=== PATIENT | female | born 1995 | race Caucasian/White ===

== ENCOUNTER → 2017-06-24 | Outpatient (CLI) | payer OTHER ==
--- NOTE | 2017-07-01 21:05 | EM ---
EVENT MONITOR Patient was monitored for 24 hours. The baseline rhythm is a sinus mechanism with normal conduction, the average rate 94 beats per minute, minimum 57, maximum 202 beats per minute. Ventricular ectopic activity was not present. Episode of sinus tachycardia was noted with a maximum rate of 202. This could represent supraventricular tachycardia. Symptoms of heart racing correlated with the episode of supraventricular tachycardia. MMODL / IJN: [id number] /
== END | disposition home or self-care (01) ==
LOC: RADECHMAIN 12:16
PROVIDERS: ATTEND Pediatrics
DX: R00.0 Tachycardia, unspecified (principal)
CPT/HCPCS: 93225; 93226

== ENCOUNTER 2017-08-05 10:05 | Emergency (ER) | payer OTHER ==
[2017-08-05 10:24] VITALS: RESP 16; TEMP 98.1
--- NOTE | 2017-08-05 10:43 | ED ---
General Adult HPI - General Chief complaint: Vaginal Bleeding Stated complaint: POSS MISCARRAGE Time Seen by Provider: 08/05/17 10:20 Source: patient, RN notes reviewed Mode of arrival: ambulatory Limitations: no limitations - History of Present Illness Initial comments: This is a 22-year-old female who states she is 9 weeks it is her first . Patient states that a little lower abdominal cramping last evening and this morning she woke up with vaginal bleeding. Patient is concerned she is having a miscarriage. Patient denies any cramping or abdominal pain today. Patient denies any dysuria hematuria urinary frequency. Patient denies any nausea vomiting or diarrhea. Patient denies any fever chills. Patient denies any other symptoms at this time. Patient does not know her blood type. - Related Data Home Medications Medication Instructions Recorded Confirmed Msr-Ojvm-Uqvbr Acid 1 cap PO DAILY 08/05/17 08/05/17 [-U Capsule (formulary)] Allergies Allergy/AdvReac Type Severity Reaction Status Date / Time No Known Allergies Allergy Verified 08/05/17 12:24 Review of Systems ROS Statement: Those systems with pertinent positive or pertinent negative responses have been documented in the HPI. ROS Other: All systems not noted in ROS Statement are negative. Past Medical History Additional Past Medical History / Comment(s): TACHYCARDIA History of Any Multi-Drug Resistant Organisms: None Reported Past Surgical History: No Surgical Hx Reported Past Psychological History: No Psychological Hx Reported Smoking Status: Never smoker Past Alcohol Use History: None Reported Past Drug Use History: None Reported General Exam - General Exam Comments Initial Comments: GENERAL: Patient is well-developed and well-nourished. Patient is nontoxic and well- hydrated and is in no acute distress. ENT: Neck is soft and supple. No significant lymphadenopathy is noted. Oropharynx is clear. Moist mucous membranes. Neck has full range of motion without eliciting any pain. EYES: The sclera were anicteric and conjunctiva were pink and moist. Extraocular movements were intact and pupils were equal round and reactive to light. Eyelids were unremarkable. PULMONARY: Unlabored respirations. Good breath sounds bilaterally. No audible rales rhonchi or wheezing was noted. CARDIOVASCULAR: There is a regular rate and rhythm without any murmurs gallops or rubs. ABDOMEN: Soft and nontender with normal bowel sounds. No palpable organomegaly was noted. There is no palpable pulsatile mass. GENITALIA I did a speculum exam the cervical os was closed and there was some very slow vaginal bleeding. SKIN: Skin is clear with no lesions or rashes and otherwise unremarkable. NEUROLOGIC: Patient is alert and oriented x3. Cranial nerves II through XII are grossly intact. Motor and sensory are also intact. Normal speech, volume and content. Symmetrical smile. MUSCULOSKELETAL: Normal extremities with adequate strength and full range of motion. LYMPHATICS: No significant lymphadenopathy is noted PSYCHIATRIC: Normal psychiatric evaluation. Limitations: no limitations Course Vital Signs 08/05/17 10:21 Temperature 98.1 F Pulse Rate 100 Respiratory 16 Rate Blood Pressure 129/63 O2 Sat by Pulse 99 Oximetry Medical Decision Making - Medical Decision Making Ultrasound showed an irregular-shaped fluid collection in the endometrium with no definitive yolk sac or pole. Patient's beta hCG was over 8000. Patient will follow department on Thursday. - Lab Data Lab Results 08/05/17 08/05/17 08/05/17 Range/Units 10:40 10:40 10:40 HCG, Quant 8091.1 mIU/mL Urine HCG, Qual Detected (Not Detectd) Blood Type O Positive Blood Type Recheck No Disposition Clinical Impression: Threatened Disposition: HOME SELF-CARE Condition: Good Instructions: Threatened Miscarriage (ED) Additional Instructions: Patient should return if there are any new or worsening symptoms. Patient returns as any abdominal pain. Patient should follow-up with Brit. Is patient prescribed a controlled substance at d/c from ED?: No Referrals: Lito Monsalve MD [Primary Care Provider] - 1-2 days Time of Disposition: 12:28
--- NOTE | 2017-08-05 12:04 | US ---
EXAMINATION TYPE: Transabdominal DATE OF EXAM: 05/19/17 COMPARISON: NONE CLINICAL HISTORY: pain. Bleeding. Patient had an ultrasound done at her doctor's office which showed a possible gestational sac about 3 weeks ago. Patient states she should be around 9 weeks. EXAM PERFORMED: Transvaginal (TV) and Transabdominal (TA) EXAM MEASUREMENTS: GESTATIONAL AGE / DATING Physician Established: (9 weeks/1 days) EDC: 03/09/2017 Dates by LMP: LMP unknown Dates by First Scan: No scan done at this facility Dates by Current Scan for: No IUP seen at this time MATERNAL ANATOMY Uterus: 6.8 x 5.1 x 6.1 cm Right Ovary: 3.3 x 1.9 x 2.3 cm Left Ovary: 2.0 x 0.8 x 2.1 cm Post CDS / Adnexa: wnl Presence of free fluid: No Presence of corpus luteal cyst: No Presence of subchorionic bleed: Yes, multiple hypoechoic areas visualized adjacent to the possible ge stational sac, largest measuring 1.6 x 0.9 x 0.9 cm GESTATION / SURVEY MSD: 1.5 cm (6 weeks/1 days) IUP: No pole or yolk sac visualized on this exam Date of LMP: Unsure Beta HcG (if available): Not available at this time. Irregular shaped anechoic area visualized within the endometrium measuring 1.9 x 1.7 x 1.1 cm. No yol k sac or pole visualized on this exam. IMPRESSION: 1. Irregular shaped fluid collection in the endometrium with no definite yolk sac or pole. Diff erential diagnosis includes spontaneous , normal too early to detect, or ectopic pr egnancy. Correlate with serial beta hCG and pelvic ultrasound as clinically warranted.
[2017-08-05 12:43] VITALS: BP 126/70; PULSE 98
== END 2017-08-05 12:43 | disposition home or self-care (01) ==
LOC: EC 10:05
DX: O20.0 Threatened abortion (principal); Z3A.09 9 weeks gestation of pregnancy
CPT/HCPCS: 36415; 76801; 76817; 81025; 84702; 86900; 86901; 99284

== ENCOUNTER → 2017-08-07 | Outpatient (CLI) | payer OTHER | END | disposition home or self-care (01) | LOC: LABWHC1 08:12 | PROVIDERS: ATTEND Pediatrics | DX: O20.0 Threatened abortion (principal); Z3A.00 Weeks of gestation of pregnancy not specified | CPT/HCPCS: 36415; 84702 ==

== ENCOUNTER → 2017-08-12 | Outpatient (CLI) | payer OTHER ==
--- NOTE | 2017-08-13 10:19 | US ---
EXAMINATION TYPE: Transabdominal DATE OF EXAM: 05/19/17 COMPARISON: US CLINICAL HISTORY: Abn us; vaginal bleeding; EXAM PERFORMED: Transvaginal (TV to better see gestational sac and ovaries) and Transabdominal US. EXAM MEASUREMENTS: GESTATIONAL AGE / DATING Physician Established: Not yet established Dates by LMP: (10 weeks/1 day) EDC: 03/09/2018 Dates by First Scan: irregular gestational sac seen (6 weeks 1 day) Dates by Current Scan for: irregular gestational sac and contents seen today (6 weeks/1 day) MATERNAL ANATOMY Uterus: 10.0 x 6.2 x 4.6cm Right Ovary: 3.7x 1.8 x 2.2cm Left Ovary: 3.1 x 1.9 x 1.3cm Post CDS / Adnexa: wnl Presence of free fluid: no Presence of corpus luteal cyst: oval solid mass noted in right ovary =1.8 x 1.2 x 0.9cm Mixed solid and cystic spaces are present within the endometrium. GESTATION / SURVEY IUP: no pole or yolk sac seen; irregular appearance to gestational sac Beta HcG (if available): IMPRESSION: Abnormal appearance to the endometrium, abnormal thickening, internal echoes, consider retained produ cts of conception, failed , molar . No viable intrauterine is evident. So lid right ovarian mass could represent hemorrhagic cyst, follow-up.
== END | disposition home or self-care (01) ==
LOC: RADUSMAIN 17:45
PROVIDERS: ATTEND Obstetrics & Gynecology
DX: O02.0 Blighted ovum and nonhydatidiform mole (principal); O26.891 Other specified pregnancy related conditions, first trimester; N83.8 Other noninflammatory disorders of ovary, fallopian tube and broad ligament; Z3A.14 14 weeks gestation of pregnancy
CPT/HCPCS: 76801

== ENCOUNTER → 2017-08-13 | Outpatient (CLI) | payer OTHER ==
[2017-08-13 10:02] LABS: Basophils % (A) 0 %; Eosinophils # (A) 0.1 k/uL (0-0.7); Eosinophils % (A) 1 %; HCT 42.3 % (34.0-46.0); HGB 14.1 gm/dL (11.4-16.0); Lymphocytes # (A) 1.8 k/uL (1.0-4.8); Lymphocytes % (A) 27 %; MCH 30.1 pg (25.0-35.0); MCHC 33.3 g/dL (31.0-37.0); MCV 90.5 fL (80.0-100.0); Mean Platelet Volume 7.9; Monocytes # (A) 0.3 k/uL (0-1.0); Monocytes % (A) 5 %; Neutrophils # (A) 4.2 k/uL (1.3-7.7); Neutrophils % (A) 64 %; Platelet Count 168 k/uL (150-450); RBC 4.67 m/uL (3.80-5.40); RDW 12.9 % (11.5-15.5); WBC 6.5 k/uL (4.0-11.0)
== END | disposition home or self-care (01) ==
LOC: LABPAT 09:30
PROVIDERS: ATTEND Obstetrics & Gynecology
DX: Z01.812 Encounter for preprocedural laboratory examination (principal)
CPT/HCPCS: 36415; 85025

== ENCOUNTER → 2017-08-15 | Outpatient (CLI) | payer OTHER ==
[2017-08-15 11:15] LABS: Basophils % (A) 0 %; Eosinophils % (A) 0 %; HCT 42.5 % (34.0-46.0); HGB 14.4 gm/dL (11.4-16.0); Lymphocytes # (A) 1.4 k/uL (1.0-4.8); Lymphocytes % (A) 18 %; MCH 30.3 pg (25.0-35.0); MCHC 33.8 g/dL (31.0-37.0); MCV 89.7 fL (80.0-100.0); Mean Platelet Volume 7.3; Monocytes # (A) 0.3 k/uL (0-1.0); Monocytes % (A) 4 %; Neutrophils % (A) 76 %; Platelet Count 186 k/uL (150-450); RBC 4.74 m/uL (3.80-5.40); RDW 12.9 % (11.5-15.5); WBC 7.9 k/uL (4.0-11.0)
== END | disposition home or self-care (01) ==
LOC: LABPAT 10:37
PROVIDERS: ATTEND Obstetrics & Gynecology
DX: Z01.812 Encounter for preprocedural laboratory examination (principal)
CPT/HCPCS: 36415; 85025; 86850; 86900; 86901

== ENCOUNTER 2017-08-17 05:59 | Day surgery (SDC) | payer OTHER ==
[2017-08-13 11:29] VITALS: BMI 25.7
--- NOTE | 2017-08-14 16:40 | P.HPOB ---
History of Present Illness H&P Date: 08/14/17 Chief Complaint: Incomplete This patient is a pleasant 22-year-old 1 para 0 female who initially presented to me for a new OB appointment with complaints of vaginal bleeding. Patient had been in the emergency department and was found to have a small sac consistent with 6 weeks with multiple subchorionic areas of bleeding. Patient's beta-hCG was 8091. Patient also reported that she had an ultrasound [facility] a month previous that showed an empty sac. Repeat ultrasound done 2 days ago showed persistent irregular sac without interval change and also decreasing beta hCG to approximately 5900. Patient continues to bleed at this time is requesting suction D&C for treatment. Review of Systems Genitourinary: Reports as per HPI, Reports abnormal vaginal bleeding, Reports Past Medical History Past Medical History: No Reported History Additional Past Medical History / Comment(s): "fast heart beat" - no rx, History of Any Multi-Drug Resistant Organisms: None Reported Past Surgical History: No Surgical Hx Reported Past Anesthesia/Blood Transfusion Reactions: No Reported Reaction Additional Past Anesthesia/Blood Transfusion Reaction / Comment(s): never had anesthesia Past Psychological History: No Psychological Hx Reported Smoking Status: Never smoker Past Alcohol Use History: None Reported Past Drug Use History: None Reported - Past Family History Mother Family Medical History: No Reported History Medications and Allergies Home Medications Medication Instructions Recorded Confirmed Type No Known Home Medications 08/13/17 08/13/17 History Allergies Allergy/AdvReac Type Severity Reaction Status Date / Time No Known Allergies Allergy Verified 08/13/17 11:24 Exam - OBG Physical Exam Abdomen: bowel sounds normal, no diffuse tenderness, no bruit present, no guarding noted, no hepatomegaly, no splenomegaly, no mass Vulva: both: normal Vagina: normal moisture, no discharge Cervix: no lesion, no discharge Uterus: enlarged Results Ultrasound shows a 6 weeks irregular sac with multiple areas of subchorionic hemorrhage. Assessment and Plan (1) Incomplete Narrative/Plan: This is a pleasant 22-year-old 1 para 0 female estimated gestational age 6 weeks with a nonviable consistent with an incomplete . Plan at this time is to proceed with suction D&C for treatment. Patient I have discussed the surgery and risks and risks of infection, bleeding, possible uterine perforation. All the patient's questions are answered and a written consent is obtained. Status: Acute Code(s): O03.4 - INCOMPLETE SPONTANEOUS WITHOUT COMPLICATION SNOMED Code(s): 554977625
[~2017-08-17 05:59] MED LIST: DEXAMETHASONE SOD PHOSPHATE 10 MG/ML 1 ML VIAL IV ONE; LACTATED RINGERS 1,000 ML IV SCH; MIDAZOLAM 2 MG/2 ML VIAL IV PRN; ONDANSETRON 4 MG/2 ML VIAL IVP ONE; Pre Op ABX Message 1 EACH MISC MISCELLANE ONE; SCOPOLAMINE 1.5MG/72HR PATCH TRANSDERM ONE; fentaNYL (PF) 50 MCG/ML 2 ML AMP IV PRN
[2017-08-17 06:19] VITALS: RESP 16
[2017-08-17] MEDS ORDERED: LIDOCAINE 1% 20 ML VIAL (10MG/ML) FOR IV START INTRADERMA ONE (06:30)
[2017-08-17] MEDS ORDERED: SUCCINYLCHOLINE CHLORIDE 100 MG/5 ML SYR IV ONE (06:56)
[2017-08-17] MEDS ORDERED: MIDAZOLAM 2 MG/2 ML VIAL ONE (06:56)
[2017-08-17] MEDS ORDERED: LIDOCAINE 1% INJ 10MG/ML (20 ML MDV) ONE (06:56)
[2017-08-17] MEDS ORDERED: PROPOFOL 10 MG/ML 20 ML VIAL IV ONE (06:56)
[2017-08-17] MEDS ORDERED: KETOROLAC 30 MG/ML 1 ML VIAL ONE (06:56)
[2017-08-17] MEDS ORDERED: fentaNYL (PF) 50 MCG/ML 2 ML AMP ONE (06:56)
--- NOTE | 2017-08-17 07:28 | P.OP ---
Date of Procedure: 08/17/17 Preoperative Diagnosis: Incomplete Postoperative Diagnosis: Same Procedure(s) Performed: Suction D&C Anesthesia: YAW Surgeon: Gabino Moore Estimated Blood Loss (ml): 75 Pathology: other (Uterine contents) Condition: stable Disposition: PACU Indications for Procedure: Please see dictated H&P for intimate details of this patient's admission. Brief summary this is a pleasant 22-year-old 1 para 0 female whose had leading for over 1 week is had serial ultrasounds showing empty sac and debris and the uterine cavity. Beta-hCGs of decreased and despite waiting the patient now requests suction D&C for treatment. Patient understands this procedure and risks including risks of infection, bleeding, possible uterine perforation. All the patient's questions are answered written consent is obtained. Operative Findings: Uterine contents were consistent with degenerated products of conception Description of Procedure: This patient is taken to the operating room where she is laid in the supine position. She subsequent undergoes general endotracheal anesthesia without incident. With an adequate level of anesthesia she's placed in dorsal lithotomy position. She has a vaginal perineal prep and drape. Examination under anesthesia shows a mid position uterus slightly enlarged. I drain the bladder for about 20 mL of clear urine. Weighted speculum was placed in the posterior vagina. The anterior lip of the cervix is grasped with an Allis clamp. Cervix is then gently dilated to allow a 8 curved suction curette and the uterine cavity. Suction is applied and a large amount of tissue is removed after multiple passes. This done a gentle but thorough 4 quadrant curettage is done for no further tissue. Final pass of the suction curet is done. This time the bleeding subsides. The weighted speculum and Allis clamp are removed. All counts are correct 3. There are no complications. Patient is taken to the recovery room in satisfactory condition.
[2017-08-17 07:39] VITALS: TEMP 96.9
[2017-08-17 08:34] VITALS: BP 107/49; PULSE 70
== END 2017-08-17 09:03 | disposition home or self-care (01) ==
LOC: OR 05:59
PROVIDERS: ATTEND Obstetrics & Gynecology
DX: O03.4 Incomplete spontaneous abortion without complication (principal)
CPT/HCPCS: 88305; 59820; J2250; J1100; J2405; J2001; J3010; J1885; J0330; J2704; 86850; 86900; 86901

== ENCOUNTER → 2017-11-13 | Outpatient (CLI) | payer OTHER ==
[2017-11-13 17:40] LABS: HCT 41.2 % (34.0-46.0); HGB 13.7 gm/dL (11.4-16.0); MCH 30.1 pg (25.0-35.0); MCHC 33.3 g/dL (31.0-37.0); MCV 90.4 fL (80.0-100.0); Mean Platelet Volume 7.3; Platelet Count 208 k/uL (150-450); RBC 4.56 m/uL (3.80-5.40); RDW 12.6 % (11.5-15.5); WBC 9.2 k/uL (4.0-11.0)
[2017-11-13 17:52] LABS: Glucose 75 mg/dL (74-99)
--- NOTE | 2017-11-13 18:44 | US ---
EXAMINATION TYPE: Transabdominal DATE OF EXAM: 05/19/17 COMPARISON: NONE CLINICAL HISTORY: Z36 Confirm Dates. EXAM PERFORMED: Transabdominal (TA) EXAM MEASUREMENTS: GESTATIONAL AGE / DATING Physician Established: Not yet established Dates by LMP: (7 weeks/6 days) EDC: 06/26/2018 Dates by First Scan: No previous this is first scan Dates by Current Scan for: (7 weeks/6 days) EDC: 06/26/2018 MATERNAL ANATOMY Uterus: 8.6 x 4.9 x 6.8 cm Right Ovary: 3.5 x 1.5 x 2.9 cm Left Ovary: 3.5 x 1.6 x 1.7 cm Post CDS / Adnexa: wnl Presence of free fluid: No Presence of corpus luteal cyst: No Presence of subchorionic bleed: Yes, small to the right of the gestational sac measuring 1.2 x 0.5 x 0.8 cm GESTATION / SURVEY CRL: 1.49 cm (7 weeks/6 days) Yolk Sac (normal less than 6mm): 3 mm Heart Rate: 163 bpm Rhythm: Normal IUP: Viable IUP Date of LMP: 09/19/2017 Beta HcG (if available): Not available at this time Viable IUP, measurements consistent with dates. IMPRESSION: Ultrasound gestational age is 7 weeks 6 days. The SANTA is 06/26/2018. Tiny subchorionic hemorrhage..
[2017-11-14 03:52] LABS: HIV 1 AB Non-Reactive (Non-Reactive); HIV AB P24 Non-Reactive (Non-Reactive); HIV P24 AG Non-Reactive (Non-Reactive)
== END ==
LOC: RADUSWWP 16:41
PROVIDERS: ATTEND Obstetrics & Gynecology
DX: O20.9 Hemorrhage in early pregnancy, unspecified (principal); Z3A.01 Less than 8 weeks gestation of pregnancy; O26.811 Pregnancy related exhaustion and fatigue, first trimester
CPT/HCPCS: 76801; 82565; 82947; 85027; 86762; 86780; 86850; 86900; 86901; 87340; 87390

== ENCOUNTER 2018-04-06 19:13 | Outpatient (CLI) | payer OTHER ==
[2018-04-06 19:59] VITALS: BP 140/87; PULSE 98; RESP 16; TEMP 96.8
--- NOTE | 2018-04-07 06:34 | P.MSEPDOC ---
Presenting Problems - Arrival Data Date of Arrival on Unit: 04/06/18 Time of Arrival on Unit: 19:13 Mode of Transport: Wheelchair - Complaint OB-Reason for Admission/Chief Complaint: Other Comment: vaginal pressure and pain starting at 2pm today, no pain. Medical History - Information : 2 Para: 0 Term: 0 : 0 Abortions: Spontaneous or Elective: 1 Number of Living Children: 0 - Gestational Age Gestational Age by SANTA (wks/days): 28 Weeks and 3 Days - History Complications: Other Comment: short cervix, 4mm Review of Systems - Review of Systems Constitutional: No problems Breast: No problems ENT: No problems Cardiovascular: No problems Respiratory: No problems Gastrointestinal: No problems Genitourinary: No problems Musculoskeletal: No problems Neurological: No problems Skin: No problems Vital Signs - Temperature Temperature: 96.8 F Temperature Source: Temporal Artery Scan - Pulse Right Sitting Brachial Pulse Rate: 98 Pulse Assessment Method: Automatic Cuff - Respirations Respiratory Rate: 16 Oxygen Delivery Method: Room Air O2 Sat by Pulse Oximetry: 98 - Blood Pressure Right Arm Sitting Blood Pressure: 140/87 Blood Pressure Mean: 104 Blood Pressure Source: Automatic Cuff Medical Screen Scoring (Pre) - Cervical Exam Dilation: 0 cm = 0 Membranes: Intact - Uterine Contractions Frequency: N/A Duration: N/A Intensity: N/A - Maternal Vital Signs Maternal Temperature: N/A Maternal Blood Pressure: Systolic >139 = 2 Signs of Preeclampsia: N/A Maternal Respirations: N/A - Pain Assessment Pain Scale Used: Numeric (1 - 10) Pain Intensity: 0 - Maternal Trauma Maternal Trauma: N/A - Assessment Baseline FHR: 135 Heart Rate - NICHD Category: Category I (Normal) = 0 NST: Reactive Position: N/A Station: N/A - Total Score Total Score (Pre): 2 - Level of Risk Level of Risk: Low (0-5) Physician Notification (Pre) - Physician Notified Physician Notified Date: 04/06/18 Physician Notified Time: 19:28 Physician/Practitioner Notifed:: juan josé Spoke With: juan josé New Order Received: Yes - Notification Comment Comment: d/c pt home if pt's cervix still fingertip. Disposition - Disposition OB Disposition: Discharge to home Discharge Date: 04/06/18 Discharge Time: 19:45 I agree with the RN Medical Screening Exam: Yes Risk & Benefit of care provided described in d/c instruction: Yes Diagnosis: FALSE LABOR BEFORE 37 COMPLETED WEEKS OF GEST, THIRD TRI (Patient will follow up with maternal medicine in approximately 48 hours as scheduled)
== END 2018-04-06 19:45 | disposition home or self-care (01) ==
LOC: FBPOP 19:13
PROVIDERS: ATTEND Obstetrics & Gynecology
DX: O47.03 False labor before 37 completed weeks of gestation, third trimester (principal); Z3A.28 28 weeks gestation of pregnancy
CPT/HCPCS: 59025; G0463; 99213

== ENCOUNTER 2018-05-28 11:21 | Observation (INO) | payer OTHER ==
[2018-05-28 17:21] VITALS: BMI 29.0
--- NOTE | 2018-05-28 18:40 | P.HPOB ---
History of Present Illness H&P Date: 05/28/18 Chief Complaint: Vaginal spotting This patient is a pleasant 22-year-old 2 para 0 female estimated date of confinement 06/26/2018 estimated gestational age 35-6/7 weeks who was in my office today for a in routine ultrasound and had reported to my vehicle technician that she's had some vaginal bleeding earlier this morning. is been complicated by a short cervix for which she was followed by maternal medicine until recently. Patient also has a small VSD. Patient denies intercourse. She denies abdominal pain. Is having some occasional contractions. Speculum exam shows a small amount of dark red blood. Cervix is 2 cm dilated. heart tones category 1. Ultrasound today was normal without evidence of abruption. Review of Systems Genitourinary: Reports Menstruation: Reports amenorrhea Past Medical History Past Medical History: No Reported History Additional Past Medical History / Comment(s): "fast heart beat" - no current medications. History of Any Multi-Drug Resistant Organisms: None Reported Past Surgical History: No Surgical Hx Reported Additional Past Surgical History / Comment(s): D&C. Past Anesthesia/Blood Transfusion Reactions: No Reported Reaction Additional Past Anesthesia/Blood Transfusion Reaction / Comment(s): never had anesthesia Past Psychological History: No Psychological Hx Reported Smoking Status: Never smoker Past Alcohol Use History: None Reported Past Drug Use History: None Reported - Past Family History Mother Family Medical History: No Reported History Medications and Allergies Home Medications Medication Instructions Recorded Confirmed Type No Known Home Medications 04/06/18 05/28/18 History Allergies Allergy/AdvReac Type Severity Reaction Status Date / Time No Known Allergies Allergy Verified 05/28/18 13:42 Exam Vital Signs Temp Pulse Resp BP Pulse Ox 05/28/18 16:00 98.4 F 85 16 127/60 05/28/18 11:51 97.2 F L 102 H 16 126/64 97 Intake and Output 05/28/18 05/28/18 05/28/18 06:59 14:59 22:59 Other: Weight 76.657 kg - OBG Physical Exam Abdomen: bowel sounds normal, no diffuse tenderness, no bruit present, no guarding noted, no hepatomegaly, no splenomegaly, no mass Vulva: both: normal Cervix: Cervix is 2 cm 50% effaced soft small amount of dark red blood on exam Uterus: enlarged Results blood work shows she is O positive, rubella immune, RPR nonreactive, hepatitis B negative, HIV is nonreactive, Glucola was normal, ultrasounds showed an EIF and a small midline muscular VSD which [facility] has requested a nonemergent follow-up . Cervix and actually was short at 4 mm but they felt it was longer later in the around 15 mm. All 7 the office showed no evidence of placental abruption or etiology of her bleeding Assessment and Plan Assessment: This is a pleasant 22-year-old 2 para 0 female 35-6/7 weeks gestation with an episode of bleeding earlier this morning. At this time there is no evidence of placental abruption or compromise. I am however going to admit her for prolonged observation. She does well overnight has no significant bleeding and category 1 heart tones will let her go home tomorrow. (1) 35 to 36 weeks gestation of Current Visit: Yes Status: Acute Code(s): BXE8527 - SNOMED Code(s): 979772734 (2) Third trimester bleeding Current Visit: Yes Status: Acute Code(s): O46.93 - ANTEPARTUM HEMORRHAGE, UNSPECIFIED, THIRD TRIMESTER SNOMED Code(s): 973615382
--- NOTE | 2018-05-28 18:43 | P.MSEPDOC ---
Presenting Problems - Arrival Data Date of Arrival on Unit: 05/28/18 Time of Arrival on Unit: 11:21 Mode of Transport: Ambulatory - Complaint OB-Reason for Admission/Chief Complaint: Vaginal Bleeding Comment: sent over from office. Medical History - Information : 2 Para: 1 Term: 0 : 0 Abortions: Spontaneous or Elective: 1 Number of Living Children: 0 - Gestational Age Gestational Age by SANTA (wks/days): 35 Weeks and 6 Days Review of Systems - Review of Systems Constitutional: No problems Breast: No problems ENT: No problems Cardiovascular: No problems Respiratory: No problems Gastrointestinal: No problems Genitourinary: No problems Musculoskeletal: No problems Neurological: No problems Skin: No problems Vital Signs - Temperature Temperature: 98.4 F Temperature Source: Temporal Artery Scan - Pulse Left Pulse Rate: 85 Pulse Assessment Method: Automatic Cuff - Respirations Respiratory Rate: 16 - Blood Pressure Right Arm Blood Pressure: 127/60 Blood Pressure Mean: 82 Blood Pressure Source: Automatic Cuff Medical Screen Scoring (Pre) - Cervical Exam Dilation: Exam Deferred Effacement: Exam Deferred - Uterine Contractions Frequency: N/A Duration: N/A Intensity: N/A - Maternal Vital Signs Maternal Temperature: N/A Signs of Preeclampsia: N/A Maternal Respirations: N/A - Pain Assessment Pain Location and Character: Pelvic Pain Scale Used: Numeric (1 - 10) Pain Intensity: 5 Pain Management Goal: 0 Pain Description: *Acute, Pressure Pain Frequency: Constant Pain Duration Units: Minutes Pain Behavior: Vocalization - Maternal Trauma Maternal Trauma: N/A - Assessment Baseline FHR: 135 Heart Rate - NICHD Category: Category I (Normal) = 0 NST: Reactive Position: N/A Station: N/A - Total Score Total Score (Pre): 0 - Level of Risk Level of Risk: Low (0-5) Physician Notification (Pre) - Physician Notified Physician Notified Date: 05/28/18 Physician Notified Time: 11:51 Physician/Practitioner Notifed:: Dr. Moore Spoke With: Dr. Moore New Order Received: No (coming in for evaluation) Medical Screen Scoring (Post) - Cervical Exam Dilation: 1-3 cm = 1 Membranes: Intact - Uterine Contractions Frequency: N/A, > 5 minutes apart = 1 Duration: > 40 seconds = 2 Intensity: N/A - Maternal Vital Signs Maternal Temperature: N/A Maternal Blood Pressure: N/A Signs of Preeclampsia: N/A Maternal Respirations: N/A - Maternal Trauma Maternal Trauma: N/A - Total Score Total Score (Post): 4 - Post Treatment Level of Risk Post Treatment Level of Risk: Low (0-5) Physician Notification (Post) - Physician Notified Physician Notified Date: 05/28/18 Physician Notified Time: 12:10 Physician/Practitioner Notified:: Dr Moore New Order Received: Yes Disposition - Disposition OB Disposition: Admit, LDRP Suite I agree with the RN Medical Screening Exam: Yes Risk & Benefit of care provided described in d/c instruction: Yes Diagnosis: SPOTTING COMPLICATING , THIRD TRIMESTER
--- NOTE | 2018-05-29 07:39 | P.PN ---
Progress Note - Text Progress Note Date: 05/29/18 Patient is resting overnight without any significant bleeding. heart tones are category 1, reassuring. Patient's been having abdominal pain or significant contractions. At this point I think she is stable for discharge home follow up with me on Thursday. Given strict instructions to call if any painful contractions increased bleeding, rupture membranes, and/or decreased movement.
--- NOTE | 2018-05-29 07:42 | P.DS ---
Providers Date of admission: 05/28/18 12:25 Expected date of discharge: 05/29/18 Attending physician: Gabino Moore Primary care physician: Stated None - Discharge Diagnosis(es) (1) 35 to 36 weeks gestation of Current Visit: Yes Status: Acute (2) Third trimester bleeding Current Visit: Yes Status: Acute Hospital Course: Please see dictated H&P for intimate details of this patient's admission. Brief summary this pleasant 22-year-old 2 para 0 female 36 weeks gestation who is admitted with vaginal spotting. Patient also my office which was normal, she was observed here overnight and had reactive heart tones without any concerns. Patient's felt be stable for discharge home follow up with me on Thursday. Patient Condition at Discharge: Good Plan - Discharge Summary New Discharge Prescriptions: No Action No Known Home Medications Discharge Medication List No Known Home Medications 04/06/18 [History] Follow up Appointment(s)/Referral(s): Gabino Moore MD [STAFF PHYSICIAN] - 06/01/18 Activity/Diet/Wound Care/Special Instructions: No intercourse or anything per vagina. Please call if any increased vaginal bleeding, regular painful contractions, leaking of fluid, abdominal pain, and/or decreased movement.
[2018-05-29 09:38] VITALS: BP 110/56; PULSE 82; RESP 18; TEMP 96.8
== END 2018-05-29 09:40 | disposition home or self-care (01) ==
LOC: FBPOP 11:21 → 4NBN 12:24 → UNDOADMOB 12:24 → 4FBP 12:25
PROVIDERS: ADMIT Obstetrics & Gynecology; ATTEND Obstetrics & Gynecology
DX: O26.853 Spotting complicating pregnancy, third trimester (principal); O26.873 Cervical shortening, third trimester; O99.413 Diseases of the circulatory system complicating pregnancy, third trimester; Q21.0 Ventricular septal defect; Z3A.35 35 weeks gestation of pregnancy
CPT/HCPCS: 59025; G0378 ×2; G0463; 99213

== ENCOUNTER 2018-06-15 16:50 | Inpatient (IN) | payer OTHER ==
[2018-06-15] MEDS ORDERED: LIDOCAINE 0.5% (PF) 5 MG/ML (50 ML SDV) SQ PRN (17:11)
[2018-06-15] MEDS ORDERED: CARBOPROST TROMETHAMINE 250 MCG/ML 1 ML AMP IM PRN (17:11)
[2018-06-15] MEDS ORDERED: METHYLERGONOVINE 0.2 MG/ML 1 ML AMP IM PRN (17:11)
[2018-06-15] MEDS ORDERED: TERBUTALINE 1 MG/ML VIAL SQ PRN (17:11)
[2018-06-15] MEDS ORDERED: OXYTOCIN 10 UNIT/ML 1 ML VIAL IM PRN (17:11)
[2018-06-15] MEDS ORDERED: LACTATED RINGERS 1,000 ML IV SCH (17:15)
[2018-06-15] MEDS ORDERED: OXYTOCIN 30 UNITS/500 ML NS 30 UNIT in SALINE 1 500ML.BAG IV SCH (17:15)
[2018-06-15 17:20] LABS: Basophils % (A) 0 %; Eosinophils # (A) 0.1 k/uL (0-0.7); Eosinophils % (A) 1 %; HCT 38.1 % (34.0-46.0); HGB 12.1 gm/dL (11.4-16.0); Hypochromasia Moderate; Lymphocytes # (A) 1.6 k/uL (1.0-4.8); Lymphocytes % (A) 18 %; MCH 27.4 pg (25.0-35.0); MCHC 31.9 g/dL (31.0-37.0); MCV 85.9 fL (80.0-100.0); Mean Platelet Volume 8.5; Monocytes # (A) 0.5 k/uL (0-1.0); Monocytes % (A) 6 %; Neutrophils # (A) 6.7 k/uL (1.3-7.7); Neutrophils % (A) 74 %; Platelet Count 218 k/uL (150-450); Poikilocytosis Moderate; RBC 4.43 m/uL (3.80-5.40); RDW 14.8 % (11.5-15.5); WBC 9.1 k/uL (4.0-11.0)
--- NOTE | 2018-06-15 17:48 | P.HPOB ---
History of Present Illness H&P Date: 06/15/18 Chief Complaint: Contractions. This patient is a pleasant 22-year-old 2 para 1 female estimated date of confinement 06/26/2018 estimated gestational age 38-3/7 weeks who presents to labor and delivery with complaint of contractions. Patient was seen in the office yesterday was 4 simmers dilators now 8-9 cm dilated in active labor. care is complicated by initially an EIF and I was sent to maternal- medicine. Evaluation there did show a small mid muscular VSD and had a very short cervix of 4 mm. Patient was hospitalized there and watched and has had close observation throughout the . Patient had a heart echo which showed the small VSD and they recommended a nonemergent heart echo. Patient's care otherwise has been uncomplicated. Review of Systems Gastrointestinal: Reports heartburn Genitourinary: Reports Menstruation: Reports amenorrhea Past Medical History Past Medical History: No Reported History Additional Past Medical History / Comment(s): "fast heart beat" - no current medications. History of Any Multi-Drug Resistant Organisms: None Reported Past Surgical History: No Surgical Hx Reported Additional Past Surgical History / Comment(s): D&C. Past Anesthesia/Blood Transfusion Reactions: No Reported Reaction Additional Past Anesthesia/Blood Transfusion Reaction / Comment(s): never had anesthesia Past Psychological History: No Psychological Hx Reported Smoking Status: Never smoker Past Alcohol Use History: None Reported Past Drug Use History: None Reported - Past Family History Mother Family Medical History: No Reported History Medications and Allergies Home Medications Medication Instructions Recorded Confirmed Type No Known Home Medications 04/06/18 05/28/18 History Allergies Allergy/AdvReac Type Severity Reaction Status Date / Time No Known Allergies Allergy Verified 05/28/18 13:42 Exam Intake and Output 06/15/18 06/15/18 06/15/18 06:59 14:59 22:59 Other: Weight 78.018 kg - OBG Physical Exam Abdomen: bowel sounds normal, no diffuse tenderness, no bruit present, no guarding noted, no hepatomegaly, no splenomegaly, no mass Vulva: both: normal Vagina: normal moisture, no discharge Cervix: no lesion (8-9 cm 80% effaced -2 station), no discharge Uterus: enlarged (Fundal height is 39 cm) Results blood work shows she is O positive, rubella immune, RPR nonreactive, hepatitis B negative, HIV nonreactive, Glucola was normal, group B strep was negative, ultrasounds as above. Most recent ultrasound 2 weeks ago showed the baby to be 5 lbs. 9 oz. Result Diagrams: 06/15/18 17:10 Assessment and Plan Assessment: This is a pleasant 22-year-old 2 para 0 female 38-4/7 weeks gestation who is admitted to labor and delivery in active labor. Patient also has a known mid muscular small VSD of the fetus. Plan is anticipate vaginal delivery and alert pediatricians as to the baby status. (1) 38 weeks gestation of Current Visit: Yes Status: Acute Code(s): Z3A.38 - 38 WEEKS GESTATION OF SNOMED Code(s): 08382945 (2) Normal labor Current Visit: Yes Status: Acute Code(s): O80 - ENCOUNTER FOR FULL-TERM UNCOMPLICATED DELIVERY; Z37.9 - OUTCOME OF DELIVERY, UNSPECIFIED SNOMED Code(s ): 10146393 (3) ventricular septal defect affecting antepartum care of mother Current Visit: Yes Status: Acute Code(s): O35.8XX0 - MATERNAL CARE FOR OTH ABNORMALITY AND DAMAGE, UNSP SNOMED Code(s): 898778632
[2018-06-15 19:54] VITALS: BMI 27.7
[2018-06-15] MEDS ORDERED: ZOLPIDEM 5 MG TAB PO PRN (19:54)
[2018-06-15] MEDS ORDERED: WITCH HAZEL 1 EACH MED..PAD TOPICAL PRN (19:54)
[2018-06-15] MEDS ORDERED: diphenhydrAMINE 25 MG CAP PO PRN (19:54)
[2018-06-15] MEDS ORDERED: HYDROCORTISONE 2.5% RECTAL CREAM 30 GM TUBE RECTAL PRN (19:54)
[2018-06-15] MEDS ORDERED: BISACODYL 10 MG SUPP RECTAL PRN (19:54)
[2018-06-15] MEDS ORDERED: BENZOCAINE/MENTHOL SPRAY 1 GM/SPRAY AEROSOL TOPICAL PRN (19:54)
[2018-06-15] MEDS ORDERED: diphenhydrAMINE 50 MG/ML 1 ML VIAL IVP PRN (19:54)
[2018-06-15] MEDS ORDERED: LANOLIN CREAM 5 GM TUBE TOPICAL PRN (19:54)
[2018-06-15] MEDS ORDERED: SIMETHICONE 80 MG CHEWABLE PO PRN (19:54)
[2018-06-15] MEDS ORDERED: ACETAMINOPHEN TAB 325 MG TAB PO PRN (19:54)
--- NOTE | 2018-06-15 19:58 | P.PROBDLV ---
Vaginal Delivery Note - . Vaginal Delivery Note: Normal spontaneous vaginal delivery viable female infant Apgars 9 and 9 delivery time is 1943 hrs. Please see dictated H&P for intimate details of this patient's admission. In brief summary this is a pleasant 22-year-old 2 para 0 female 38-3/7 weeks who is admitted to labor and delivery with complaint of contractions found to be 8-9 cm dilated. Patient is artificial rupture membranes for clear fluid. heart tones are category 1. Labor progresses she does get some augmentation of Pitocin but quickly progresses to complete. She does not request any pain medications. Patient pushes for approximately 10 or 15 minutes and pushes the head to the perineum. The posterior perineum was supported and we have controlled delivery of the infant's head over the intact perineum. Mouth and nares are bulb suctioned. There is no evidence of a nuchal cord. With gentle downward traction we have delivery the anterior and posterior shoulder and rest this infant's body. This is a vigorous viable female infant Apgars 9 and 9 delivery time is 1943. After delivery of the the umbilical cord is allowd to quit pulsating. Is then doubly clamped cut and transected. It appears to be trivascular. The placenta is then spontaneously delivered intact. Inspection of perineum shows some superficial bilateral labial lacerations that did not require sutures. Excellent hemostasis is noted. Estimated blood loss is 100 mL. All counts are correct 3. There are no complications.
[2018-06-15] MEDS ORDERED: OXYTOCIN 20 UNITS/1000 ML NS 1,000 ML IV SCH (20:00)
[2018-06-15] MEDS: IBUPROFEN 600 MG TAB PO PRN (22:17)
[2018-06-15] MEDS: SENNOSIDES-DOCUSATE SODIUM 1 EACH TAB PO SCH (22:18)
--- NOTE | 2018-06-16 06:15 | P.PNOBGVD ---
Subjective - Subjective Patient reports: Reports appetite normal, Reports voiding normally, Reports pain well controlled, Reports ambulating normally [place]: doing well Objective - Latest Vital Signs Latest vital signs: Vital Signs Temp Pulse Resp BP Pulse Ox 06/16/18 05:43 97.9 F 60 16 112/70 06/16/18 02:32 98.3 F 81 16 98/74 99 06/15/18 22:07 97.6 F 82 16 131/75 06/15/18 21:37 97.6 F 84 16 133/82 06/15/18 21:07 89 16 127/71 06/15/18 20:52 97.4 F L 79 16 134/81 06/15/18 20:37 97.4 F L 79 16 135/60 06/15/18 20:22 97.4 F L 89 16 140/75 06/15/18 20:07 97.4 F L 91 16 131/75 06/15/18 17:10 98.5 F 98 16 124/52 Intake and Output 06/15/18 06/15/18 06/16/18 14:59 22:59 06:59 Intake Total 300 Balance 300 Intake: Oral 300 Other: # Voids 2 Weight 78.018 kg - Exam Lungs: bilateral: normal Chest: Normal S1, Normal S2 Extremities: Present: normal Abdomen: Present: normal appearance, soft Uterus: Present: normal, firm Assessment and Plan Assessment: Post day #1. Patient is resting without new complaints. Vital signs are stable. Uterus is firm nontender and she is having normal lochia. My impression this is a normal course. Plan is to continue routine care discharge home tomorrow. (1) 38 weeks gestation of Current Visit: Yes Status: Acute Code(s): Z3A.38 - 38 WEEKS GESTATION OF SNOMED Code(s): 85371811 (2) Normal labor Current Visit: Yes Status: Acute Code(s): O80 - ENCOUNTER FOR FULL-TERM UNCOMPLICATED DELIVERY; Z37.9 - OUTCOME OF DELIVERY, UNSPECIFIED SNOMED Code(s): 15740613 (3) ventricular septal defect affecting antepartum care of mother Current Visit: Yes Status: Acute Code(s): O35.8XX0 - MATERNAL CARE FOR OTH ABNORMALITY AND DAMAGE, UNSP SNOMED Code(s): 251660582
[2018-06-16] MEDS: SENNOSIDES-DOCUSATE SODIUM 1 EACH TAB PO SCH ×2 (09:31→21:32)
[2018-06-16] MEDS: IBUPROFEN 600 MG TAB PO PRN ×2 (09:31→17:11)
[2018-06-16] MEDS ORDERED: ASPIRIN 325 MG TAB PO STA (20:10)
[2018-06-17] MEDS: IBUPROFEN 600 MG TAB PO PRN ×3 (03:35→16:44)
--- NOTE | 2018-06-17 06:39 | P.PNOBGVD ---
Subjective - Subjective Patient reports: Reports appetite normal, Reports voiding normally, Reports pain well controlled, Reports ambulating normally : doing well Objective - Latest Vital Signs Latest vital signs: Vital Signs Temp Pulse Resp BP Pulse Ox 06/17/18 03:59 98.0 F 75 14 130/70 100 06/16/18 23:38 98.1 F 88 16 103/74 98 06/16/18 22:00 90 98 06/16/18 20:48 104 H 16 97 06/16/18 20:30 115 H 06/16/18 20:10 196 H 96 06/16/18 19:55 205 H 96 06/16/18 19:40 97.8 F 212 H 16 124/72 06/16/18 16:00 98.5 F 105 H 18 138/75 97 06/16/18 08:00 98.2 F 97 18 94/56 96 - Exam Lungs: bilateral: normal Chest: Normal S1, Normal S2 Extremities: Present: normal Abdomen: Present: normal appearance, soft Uterus: Present: normal, firm Assessment and Plan Assessment: Patient had an episode last evening of what appears to be sinus tachycardia. She has a history of this in the past and was on a beta ahsan for approximately 1 month per cardiology however set she stopped it because she didn't like to wait made her feel. Patient's been fine throughout the however last evening developed some symptoms and a pulse ox showed her maternal heart rate to be greater than 200. Dr. Cortez was contacted and an EKG was done which was normal with the exception of mild sinus tachycardia. Cardiology was contacted and counseled is pending. Patient is asymptomatic this morning. She does wish to go home if cardiology evaluation is negative. Plan today is to continue routine care, we cardiology consultation, and discharge home if cleared by them. (1) 38 weeks gestation of Current Visit: Yes Status: Acute Code(s): Z3A.38 - 38 WEEKS GESTATION OF SNOMED Code(s): 58448878 (2) Normal labor Current Visit: Yes Status: Acute Code(s): O80 - ENCOUNTER FOR FULL-TERM UNCOMPLICATED DELIVERY; Z37.9 - OUTCOME OF DELIVERY, UNSPECIFIED SNOMED Code(s): 23802732 (3) ventricular septal defect affecting antepartum care of mother Current Visit: Yes Status: Acute Code(s): O35.8XX0 - MATERNAL CARE FOR OTH ABNORMALITY AND DAMAGE, UNSP SNOMED Code(s): 761441899
--- NOTE | 2018-06-17 06:44 | P.DS ---
Providers Date of admission: 06/15/18 17:02 Expected date of discharge: 06/17/18 Attending physician: Gabino Moore Consults: 06/16/18 20:52 Consult Physician Routine Consulting Provider: [facility] Reason/Comments: episode of increase HR, 205-212bpm. EKG completed- sinus tach. Do you want consulting provider notified?: Yes Primary care physician: Stated None - Discharge Diagnosis(es) (1) 38 weeks gestation of Current Visit: Yes Status: Acute (2) Normal labor Current Visit: Yes Status: Acute (3) ventricular septal defect affecting antepartum care of mother Current Visit: Yes Status: Acute Hospital Course: Please see dictated H&P for intimate details of this patient's admission. Brief summary is a pleasant 22-year-old 2 para 0 female 38-1/2 weeks gestation admitted to labor and delivery in active labor. Patient quickly goes on to have a vaginal delivery viable female . Please see dictated delivery note. the patient did well on her however day #1-1/2 she did develop some tachycardia and evaluation was done per cardiology. This is not a new condition. From a gynecologic standpoint patient is stable for discharge home on day #2. Procedures: Normal spontaneous vaginal delivery Patient Condition at Discharge: Good Plan - Discharge Summary Discharge Rx Participant: Yes New Discharge Prescriptions: New Ibuprofen [Motrin] 600 mg PO Q6HR PRN #40 tab PRN Reason: Mild Pain Or Fever >= 100.5 Discharge Medication List Ibuprofen [Motrin] 600 mg PO Q6HR PRN #40 tab 06/17/18 [Rx] Follow up Appointment(s)/Referral(s): Gabino Moore MD [STAFF PHYSICIAN] - 6 Weeks Patient Instructions/Handouts: Vaginal Delivery (DC) Activity/Diet/Wound Care/Special Instructions: No intercourse or anything per vagina for 6 weeks. Please call if any fever, chills, excessive vaginal bleeding, and/or abdominal pain. Discharge Disposition: HOME SELF-CARE
[2018-06-17] MEDS: SENNOSIDES-DOCUSATE SODIUM 1 EACH TAB PO SCH ×2 (09:20→09:51)
[2018-06-17 09:57] VITALS: RESP 16; TEMP 97.8
--- NOTE | 2018-06-17 12:37 | P.CRDCN ---
History of Present Illness History of present illness: This is a pleasant 22-year-old female past medical history significant for supraventricular tachycardia. She recently presented to the hospital on June 15 in active labor and delivered her baby shortly thereafter with a normal vaginal delivery. On day one she developed an episode of tachycardia. Per the patient she could feel herself starting to have palpitations and then her heart started racing very rapidly. This lasted for approximately 20-30 minutes. The time an EKG was obtained her heart rate had gone down to 115. She was given no medications her heart rate went down on its own. She has seen Dr. Ellis in the office last year for similar episode. She wore an event monitor and was found to have intermittent episodes of supraventricular tachycardia. She also underwent stress testing which was unremarkable for chest induced ischemia or arrhythmia. She was recommended to take metoprolol however this medication made her extremely tired and she stopped taking it. She is seen and examined sitting up nursing her baby. She has had no further episodes of tachycardia. She denies associated chest pain, shortness of breath or dizziness. EKG reveals sinus tachycardia heart rate of [address] or T wave abnormalities noted. Laboratory data reviewed, WBC 9.1, hemoglobin 12.1, platelets 218. At the time of my exam: CONSTITUTIONAL: Denies fever. Denies chills. EYES: Denies blurred vision. Denies vision changes. Denies eye pain. EARS, NOSE, MOUTH & THROAT: Denies headache. Denies sore throat. Denies ear pain. CARDIOVASCULAR: Denies chest pain. Denies shortness of breath. Denies orthopnea. Denies PND. Denies palpitations. RESPIRATORY: Denies cough. GASTROINTESTINAL: Denies abdominal pain. Denies diarrhea. Denies constipation. Denies nausea. Denies vomiting. MUSCULOSKELETAL: Denies myalgias. INTEGUMENTARY: Denies pruitis. Denies rash. NEUROLOGIC: Denies numbness. Denies tingling. Denies weakness. PSYCHIATRIC: Denies anxiety. Denies depression. ENDOCRINE: Denies fatigue. Denies weight change. Denies polydipsia. Denies polyurina. GENITOURINARY: Denies burning, hematuria or urgency with micturation. HEMATOLOGIC: Denies history of anemia. Denies bleeding. Blood pressure 141/67 heart rate 78 afebrile maintaining oxygen saturation on room air GENERAL: This is a 22-year-old female in no apparent distress at the time of my examination. HEENT: Head is atraumatic, normocephalic. Pupils are equal, round. Sclerae ani cteric. Conjunctivae are clear. Mucous membranes of the mouth are moist. Neck is supple. There is no jugular venous distention. No carotid bruit is heard. LUNGS: Clear to auscultation no wheezes, rales or rhonchi. No chest wall tenderness is noted on palpation or with deep breathing. HEART: Regular rate and rhythm without murmurs, rubs or gallops. S1 and S2 heard. ABDOMEN: Deferred due to recent vaginal delivery. EXTREMITIES: No evidence of peripheral edema and no calf tenderness noted. VASCULAR: Radial and dorsalis pedis pulses palpated, no evidence of clubbing. NEUROLOGIC: Patient is awake, alert and oriented x3. ASSESSMENT Palpitations suggestive of supraventricular tachycardia although not confirmed by EKG Recent vaginal delivery History of SVT in the past PLAN She is seen and examined and is hemodynamically stable. She has had no further episodes of palpitations. She may be discharged home to follow up with Dr. Zurita in the office in 2-4 weeks. At that time she will undergo further event monitoring and will consider possible EP study if warranted. Thank you kindly for this consultation. Nurse Practitioner note has been reviewed, I agree with a documented findings an d plan of care. Patient was seen and examined. Past Medical History Past Medical History: No Reported History Additional Past Medical History / Comment(s): "fast heart beat" - no current medications. History of Any Multi-Drug Resistant Organisms: None Reported Past Surgical History: No Surgical Hx Reported Additional Past Surgical History / Comment(s): D&C. Past Anesthesia/Blood Transfusion Reactions: No Reported Reaction Additional Past Anesthesia/Blood Transfusion Reaction / Comment(s): never had anesthesia Past Psychological History: No Psychological Hx Reported Smoking Status: Never smoker Past Alcohol Use History: None Reported Past Drug Use History: None Reported - Past Family History Mother Family Medical History: No Reported History Medications and Allergies Home Medications Medication Instructions Recorded Confirmed Type Ibuprofen [Motrin] 600 mg PO Q6HR PRN #40 tab 06/17/18 Rx Allergies Allergy/AdvReac Type Severity Reaction Status Date / Time No Known Allergies Allergy Verified 05/28/18 13:42 Physical Exam Vitals: Vital Signs Temp Pulse Resp BP Pulse Ox 06/17/18 08:00 97.8 F 78 16 141/67 06/17/18 03:59 98.0 F 75 14 130/70 100 06/16/18 23:38 98.1 F 88 16 103/74 98 06/16/18 22:00 90 98 06/16/18 20:48 104 H 16 97 06/16/18 20:30 115 H 06/16/18 20:10 196 H 96 06/16/18 19:55 205 H 96 06/16/18 19:40 97.8 F 212 H 16 124/72 06/16/18 16:00 98.5 F 105 H 18 138/75 97 Intake and Output 06/16/18 06/17/18 06/17/18 22:59 06:59 14:59 Other: # Voids 1 Results 06/15/18 17:10 Current Medications Generic Name Dose Route Start Last Admin Trade Name Freq PRN Reason Stop Dose Admin Acetaminophen 650 mg 06/15/18 19:54 06/16/18 21:31 Tylenol Tab PO 650 mg Q4HR PRN Administration Mild Pain or Fever >= 100.5 Benzocaine/Menthol 1 gm 06/15/18 19:54 Dermoplast [place] TOPICAL TID PRN Perineal Discomfort Bisacodyl 10 mg 06/15/18 19:54 Dulcolax RECTAL DAILY PRN Constipation Diphenhydramine HCl 25 mg 06/15/18 19:54 Benadryl PO Q6HR PRN Mild Itching Emollient Ointment 1 applic 06/15/18 19:54 Lanolin TOPICAL Q1HR PRN Breast Feeding Hydrocortisone 1 applic 06/15/18 19:54 Proctosol-Hc 2.5% RECTAL BID PRN Hemorrhoids Ibuprofen 600 mg 06/15/18 19:54 06/17/18 09:47 Motrin PO 600 mg Q6HR PRN Administration Mild Pain or Fever >= 100.5 Senna/Docusate Sodium 2 each 06/15/18 20:00 06/17/18 09:51 Senokot-S PO 2 each BID@0800,2000 [place] Administration Simethicone 80 mg 06/15/18 19:54 Mylicon Chew PO PCHS PRN Indigestion Witch Bianca 1 each 06/15/18 19:54 Tucks Medicated Pads TOPICAL DAILY PRN Perineal Discomfort Zolpidem Tartrate 5 mg 06/15/18 19:54 Ambien PO HS PRN Insomnia Intake and Output 06/16/18 06/17/18 06/17/18 22:59 06:59 14:59 Other: # Voids 1 06/15/18 17:10
[2018-06-17 17:07] VITALS: BP 140/85; PULSE 88
== END 2018-06-17 17:08 | disposition home or self-care (01) | DRG 805 ==
LOC: FBPOP 16:50 → 4FBP 17:02
PROVIDERS: ADMIT Obstetrics & Gynecology; ATTEND Obstetrics & Gynecology
PROC: 10E0XZZ Delivery of Products of Conception, External Approach (ICD-10-PCS; principal; 2018-06-15)
DX: O35.8XX0 Maternal care for other (suspected) fetal abnormality and damage, not applicable or unspecified (principal); O99.42 Diseases of the circulatory system complicating childbirth; Z37.0 Single live birth; O26.873 Cervical shortening, third trimester; I47.1 Supraventricular tachycardia; O70.0 First degree perineal laceration during delivery; Z3A.38 38 weeks gestation of pregnancy
CPT/HCPCS: 85025; 86850; 86900; 86901; 93005

== ENCOUNTER 2019-08-05 18:56 | Inpatient (IN) | payer OTHER ==
[2019-08-05] MEDS ORDERED: TERBUTALINE 1 MG/ML VIAL SQ PRN (20:17)
[2019-08-05] MEDS ORDERED: LIDOCAINE 0.5% (PF) 5 MG/ML (50 ML SDV) SQ PRN (20:17)
[2019-08-05] MEDS ORDERED: METHYLERGONOVINE 0.2 MG/ML 1 ML AMP IM PRN (20:17)
[2019-08-05] MEDS ORDERED: CARBOPROST TROMETHAMINE 250 MCG/ML 1 ML AMP IM PRN (20:17)
[2019-08-05] MEDS ORDERED: OXYTOCIN 10 UNIT/ML 1 ML VIAL IM PRN (20:17)
[2019-08-05] MEDS ORDERED: AMPICILLIN 2,000 MG in SODIUM CHLORIDE 0.9% 100 ML IVPB STA (20:20)
[2019-08-05] MEDS ORDERED: LACTATED RINGERS 1,000 ML IV SCH (20:30)
[2019-08-05 20:58] LABS: Basophils % (A) 0 %; Eosinophils # (A) 0.1 k/uL (0-0.7); Eosinophils % (A) 1 %; HCT 34.8 % (34.0-46.0); HGB 12.1 gm/dL (11.4-16.0); Hypochromasia Moderate; Lymphocytes # (A) 2.3 k/uL (1.0-4.8); Lymphocytes % (A) 22 %; MCH 29.3 pg (25.0-35.0); MCHC 34.7 g/dL (31.0-37.0); MCV 84.6 fL (80.0-100.0); Mean Platelet Volume 9.1; Monocytes # (A) 0.5 k/uL (0-1.0); Monocytes % (A) 5 %; Neutrophils # (A) 7.6 k/uL (1.3-7.7); Neutrophils % (A) 72 %; Platelet Count 186 k/uL (150-450); Poikilocytosis Slight; RBC 4.12 m/uL (3.80-5.40); RDW 15.7 % (11.5-15.5); WBC 10.5 k/uL (3.8-10.6)
--- NOTE | 2019-08-05 21:22 | P.HPOB ---
History of Present Illness H&P Date: 08/05/19 Chief Complaint: Contractions This is a 24-year-old female 3 para 1 with an estimated date of confinement of 08/31/2019, estimated gestational age of 36-2/7 weeks, who presents to labor and delivery with complaints of contractions that started yesterday but became more regular today. She states they are still not really uncomfortable but she was concerned since her contractions have not let up. care has been with Dr. Moore and has been essentially uncomplicated. She was followed by maternal medicine during this due to a history of a short cervix with her last . Her ultrasounds were normal and she also had a echocardiogram that was normal. She denies any rupture of membranes. She admits to good movement. labs: GC/Chlamydia/Trichomonas-negative Hepatitis B surface antigen-negative RPR-nonreactive Rubella-nonimmune Blood type-O+ Antibody screen-negative Hemoglobin-12.9 Random glucose-78 1 hour Glucola-109 Group B streptococcus-positive Obstetrical history: . History of 1 miscarriage and 1 vaginal delivery at 38 weeks with precipitous delivery. That was complicated by a sh ortened cervix and the baby was born with a VSD. Gynecologic history: No history of STDs stated. Social history: She is single. 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 Review of Systems Constitutional: Denies chills, Denies fever Eyes: denies blurred vision, denies pain Ears, nose, mouth and throat: Denies headache, Denies sore throat Cardiovascular: Denies chest pain, Denies shortness of breath Respiratory: Denies cough Gastrointestinal: Reports abdominal pain (Contractions) Genitourinary: Reports pelvic pain, Reports Musculoskeletal: Reports low back pain Integumentary: Denies pruritus, Denies rash Neurological: Denies numbness, Denies weakness Psychiatric: Denies anxiety, Denies depression Past Medical History Past Medical History: No Reported History Additional Past Medical History / Comment(s): "fast heart beat" - no current medications. History of Any Multi-Drug Resistant Organisms: None Reported Past Surgical History: No Surgical Hx Reported Additional Past Surgical History / Comment(s): D&C. Past Anesthesia/Blood Transfusion Reactions: No Reported Reaction Additional Past Anesthesia/Blood Transfusion Reaction / Comment(s): never had anesthesia Past Psychological History: No Psychological Hx Reported Smoking Status: Never smoker Past Alcohol Use History: None Reported Past Drug Use History: None Reported - Past Family History Mother Family Medical History: No Reported History Medications and Allergies Home Medications Medication Instructions Recorded Confirmed Type Pnv No.95/Ferrous Fum/Folic AC 1 tab PO DAILY 08/05/19 08/05/19 History [ Multivitamin Tablet] Allergies Allergy/AdvReac Type Severity Reaction Status Date / Time No Known Allergies Allergy Verified 08/05/19 19:13 Exam Osteopathic Statement: *. No significant issues noted on an osteopathic structural exam other than those noted in the History and Physical/Consult. Vital Signs Temp Pulse Resp BP 08/05/19 20:17 97.7 F 90 16 117/58 08/05/19 19:05 98.0 F 107 H 16 138/84 Intake and Output 08/05/19 08/05/19 08/05/19 06:59 14:59 22:59 Other: Weight 77.111 kg HEENT: Within normal limits Heart: Regular rate and rhythm Lungs: Clear to auscultation bilaterally Abdomen: Cervix: Initially in triage was noted to be 5 cm on admission and she made cervical change to 6 cm within 1 hour. She is 70% effaced and -2 station Total heart tones: Reactive with category 1 tracing Contractions: Anywhere from 7-10 minutes apart Extremities: Negative Homans Results Result Diagrams: 08/05/19 20:23 Abnormal Lab Results - Last 24 Hours (Table) 08/05/19 Range/Units 20:23 RDW 15.7 H (11.5-15.5) % Assessment and Plan (1) 36 weeks gestation of Current Visit: Yes Status: Acute Code(s): Z3A.36 - 36 WEEKS GESTATION OF SNOMED Code(s): 53632664 (2) Group B Streptococcus carrier, +RV culture, currently Current Visit: Yes Status: Acute Code(s): O99.820 - STREPTOCOCCUS B CARRIER STATE COMPLICATING SNOMED Code(s): 7554771879595 (3) labor third trimester with delivery third trimester, other fetus Current Visit: Yes Status: Acute Code(s): O60.14X9 - LABOR THIRD TRI W DELIVERY THIRD TRI, OTH SNOMED Code(s): 54415528802264160 Plan: Admission for active labor. Antibiotic prophylaxis secondary to group B streptococcus. Expectant management.
[2019-08-06] MEDS ORDERED: AMPICILLIN 1,000 MG in SODIUM CHLORIDE 0.9% 50 ML IVPB SCH (00:18)
--- NOTE | 2019-08-06 01:15 | P.PROBDLV ---
Vaginal Delivery Note - . Vaginal Delivery Note: The patient progressed to approximately anterior lip and then felt an urge to push. She was allowed to push with manual reduction of the anterior lip. 's head came to a crown and then the head delivered followed by the anterior shoulder and the remainder the body. was placed on mother's abdomen and cord was clamped and cut. Brisk cry was noted immediately. Infant was taken to warmer for evaluation by nursing staff. scores are 8 at 1 minute and 8 at 5 minutes and weight was 6 lbs. 7 oz. A viable female infant was noted. After approximately 20 minutes the placenta had not delivered and therefore gloved hand was placed within the uterine cavity and manual placental removal was carried out. One further swipe with a gloved hand revealed a small amount of membranes that were easily removed and a blood clot. Once this was removed, no further tissue was obtained. Uterus did contract well and firmed up fairly well. Estimated blood loss is approximately 100 mL's. Infant is being observed in level I nursery due to retracting.
[2019-08-06] MEDS ORDERED: HYDROCORTISONE 2.5% RECTAL CREAM 30 GM TUBE RECTAL PRN (01:19)
[2019-08-06] MEDS ORDERED: ZOLPIDEM 5 MG TAB PO PRN (01:19)
[2019-08-06] MEDS ORDERED: WITCH HAZEL 1 EACH MED..PAD TOPICAL PRN (01:19)
[2019-08-06] MEDS ORDERED: MEASLES-MUMPS-RUBELLA VACC/PF 12,500 UNIT/0.5 ML VIAL SQ ONE (01:19)
[2019-08-06] MEDS ORDERED: diphenhydrAMINE 25 MG CAP PO PRN (01:19)
[2019-08-06] MEDS ORDERED: OXYTOCIN 20 UNITS/1000 ML NS 1,000 ML IV SCH (01:19)
[2019-08-06] MEDS ORDERED: SIMETHICONE 80 MG CHEWABLE PO PRN (01:19)
[2019-08-06] MEDS ORDERED: diphenhydrAMINE 50 MG/ML 1 ML VIAL IVP PRN ×2 (01:19)
[2019-08-06] MEDS ORDERED: ACETAMINOPHEN TAB 325 MG TAB PO PRN (01:19)
[2019-08-06] MEDS ORDERED: diphenhydrAMINE 50 MG CAP PO PRN (01:19)
[2019-08-06] MEDS ORDERED: BENZOCAINE/MENTHOL SPRAY 1 GM/SPRAY AEROSOL TOPICAL PRN (01:19)
[2019-08-06] MEDS ORDERED: LANOLIN CREAM 5 GM TUBE TOPICAL PRN (01:19)
[2019-08-06] MEDS: IBUPROFEN 600 MG TAB PO PRN ×2 (01:28→19:56)
[2019-08-06] MEDS: SENNOSIDES-DOCUSATE SODIUM 1 EACH TAB PO SCH ×2 (07:39→19:56)
[2019-08-06 08:53] LABS: Basophils % (A) 0 %; Eosinophils % (A) 0 %; HCT 34.7 % (34.0-46.0); HGB 11.3 gm/dL (11.4-16.0); Hypochromasia Marked; Lymphocytes # (A) 1.6 k/uL (1.0-4.8); Lymphocytes % (A) 13 %; MCH 27.8 pg (25.0-35.0); MCHC 32.6 g/dL (31.0-37.0); MCV 85.2 fL (80.0-100.0); Monocytes # (A) 0.5 k/uL (0-1.0); Monocytes % (A) 4 %; Neutrophils # (A) 10.2 k/uL (1.3-7.7); Neutrophils % (A) 82 %; Platelet Count 181 k/uL (150-450); Poikilocytosis Slight; RBC 4.07 m/uL (3.80-5.40); RDW 15.4 % (11.5-15.5); WBC 12.3 k/uL (3.8-10.6)
[2019-08-07] MEDS: SENNOSIDES-DOCUSATE SODIUM 1 EACH TAB PO SCH (10:51)
--- NOTE | 2019-08-07 10:58 | P.PNOBGVD ---
Subjective - Subjective Principal diagnosis: Status post vaginal delivery day #1 Interval history: Patient is doing okay. Lochia is decreasing. Pain is well-controlled. She denies passing any clots or any heavy bleeding. She is pumping her breast milk. Patient reports: Reports appetite normal, Reports voiding normally, Reports pain well controlled, Reports ambulating normally : other (In level I nursery) Objective - Latest Vital Signs Latest vital signs: Vital Signs Temp Pulse Resp BP 08/07/19 08:00 98.0 F 87 20 117/65 08/06/19 20:00 98.2 F 71 16 116/72 08/06/19 15:58 98.1 F 71 18 113/64 08/06/19 11:47 97.8 F 80 16 115/71 Intake and Output 08/06/19 08/07/19 08/07/19 22:59 06:59 14:59 Other: # Voids 1 2 1 - Exam Extremities: Present: normal. Absent: tenderness, edema Abdomen: Present: normal appearance, soft. Absent: distention, tenderness Uterus: Present: normal, firm. Absent: tenderness Assessment and Plan Assessment: Status post vaginal delivery day #1 (1) 36 weeks gestation of Current Visit: Yes Status: Acute Code(s): Z3A.36 - 36 WEEKS GESTATION OF SNOMED Code(s): 77605146 (2) Group B Streptococcus carrier, +RV culture, currently Current Visit: Yes Status: Acute Code(s): O99.820 - STREPTOCOCCUS B CARRIER STATE COMPLICATING SNOMED Code(s): 3559202160888 (3) labor third trimester with delivery third trimester, other fetus Current Visit: Yes Status: Acute Code(s): O60.14X9 - LABOR THIRD TRI W DELIVERY THIRD TRI, OTH SNOMED Code(s): 87669793441290166 Plan: Continue with care today. Anticipate discharge home tomorrow.
[2019-08-07 15:53] VITALS: RESP 16
[2019-08-08] MEDS: SENNOSIDES-DOCUSATE SODIUM 1 EACH TAB PO SCH ×2 (05:44→08:19)
--- NOTE | 2019-08-08 05:53 | P.PNOBGVD ---
Subjective - Subjective Patient reports: Reports appetite normal, Reports voiding normally, Reports pain well controlled, Reports ambulating normally : doing well Objective - Latest Vital Signs Latest vital signs: Vital Signs Temp Pulse Resp BP 08/08/19 04:00 98.1 F 80 16 128/72 08/07/19 20:00 98.1 F 76 16 130/82 08/07/19 15:50 98.3 F 91 16 125/70 08/07/19 08:00 98.0 F 87 20 117/65 Intake and Output 08/07/19 08/07/19 08/08/19 14:59 22:59 06:59 Other: # Voids 1 2 - Exam Lungs: bilateral: normal Chest: Normal S1, Normal S2 Extremities: Present: normal Abdomen: Present: normal appearance, soft Uterus: Present: normal, firm Assessment and Plan Assessment: day #2. Patient is resting without complaints. Vital signs are stable and she is afebrile. Baby is in special care however continues to do well. Plan today is to continue routine care. And discharge home later today. (1) labor third trimester with delivery third trimester, other fetus Current Visit: Yes Status: Acute Code(s): O60.14X9 - LABOR THIRD TRI W DELIVERY THIRD TRI, OTH SNOMED Code(s): 89827739506162131
--- NOTE | 2019-08-08 05:57 | P.DS ---
Providers Date of admission: 08/05/19 20:14 Expected date of discharge: 08/08/19 Attending physician: Gabino Moore Primary care physician: Gabino Moore - Discharge Diagnosis(es) (1) labor third trimester with delivery third trimester, other fetus Current Visit: Yes Status: Acute Hospital Course: Please see dictated H&P for intimate details of this patient's admission. Brief pleasant 24-year-old 2 para 1 female 36-2/7 weeks gestation who is admitted to labor and delivery in active labor. Please see dictated history and physical per Dr. Cortez. Patient was on have a vaginal delivery viable female . Please see dictated delivery note. Delivery was complicated by retained placenta which requires manual extraction. patient does well and reports normal lochia. Patient on twos felt to be stable for discharge home follow up with me in 6 weeks. Procedures: Normal spontaneous vaginal delivery, manual extraction of placenta Patient Condition at Discharge: Good Plan - Discharge Summary New Discharge Prescriptions: New Ibuprofen [Motrin] 600 mg PO Q6HR PRN #40 tab PRN Reason: Mild Pain Or Fever >= 100.5 No Action Pnv No.95/Ferrous Fum/Folic AC [ Multivitamin Tablet] 1 tab PO DAILY Discharge Medication List Pnv No.95/Ferrous Fum/Folic AC [ Multivitamin Tablet] 1 tab PO DAILY 08/05/19 [History] Ibuprofen [Motrin] 600 mg PO Q6HR PRN #40 tab 08/08/19 [Rx] Follow up Appointment(s)/Referral(s): Gabino Moore MD [Primary Care Provider] - 6 Weeks Patient Instructions/Handouts: Vaginal Delivery (DC) Activity/Diet/Wound Care/Special Instructions: No intercourse or anything per vagina for 6 weeks. Please call if any fever, chills, excessive vaginal bleeding, and/or abdominal pain. Discharge Disposition: HOME SELF-CARE
[2019-08-08 08:18] VITALS: BP 126/75; PULSE 75; TEMP 98.2
--- NOTE | 2019-08-08 09:03 | P.MSEPDOC ---
Presenting Problems - Arrival Data Date of Arrival on Unit: 08/05/19 Time of Arrival on Unit: 18:56 Mode of Transport: Ambulatory - Complaint OB-Reason for Admission/Chief Complaint: Possible Onset of Labor Comment: Patient arrives to triage with complaints of nonpainless contractions all. day, but she did not have painful contractions with her first either. Denies leaking. fluid, states she can feel the baby move. She was checked yesterday in the office and. was dilitated to 4.5 Medical History - Information : 3 Para: 1 Term: 1 : 0 Abortions: Spontaneous or Elective: 1 Number of Living Children: 1 - Gestational Age Gestational Age by SANTA (wks/days): 36 Weeks and 2 Days - History Complications: GBS+ Review of Systems - Review of Systems Constitutional: No problems Breast: No problems ENT: No problems Cardiovascular: No problems Respiratory: No problems Gastrointestinal: No problems Genitourinary: No problems Musculoskeletal: No problems Neurological: No problems Skin: No problems Vital Signs - Temperature Temperature: 98.2 F Temperature Source: Temporal Artery Scan - Pulse Right Brachial Pulse Rate: 75 Pulse Assessment Method: Pulse Oximetry - Respirations Respiratory Rate: 16 Oxygen Delivery Method: Room Air O2 Sat by Pulse Oximetry: 98 - Blood Pressure Right Arm Blood Pressure: 126/75 Blood Pressure Mean: 92 Blood Pressure Source: Automatic Cuff Medical Screen Scoring (Pre) - Cervical Exam Dilation: 4-7 cm = 2 Effacement: More than 50% = 2 Membranes: Intact - Uterine Contractions Frequency: > 5 minutes apart = 1 Duration: N/A Intensity: N/A - Maternal Vital Signs Maternal Temperature: N/A Maternal Blood Pressure: N/A Signs of Preeclampsia: N/A - Assessment - Baby A Baseline FHR: 125 Heart Rate - NICHD Category: Category I (Normal) = 0 NST: Reactive - Total Score - Baby A Total Score - Baby A: 5 - Total Score - Baby B Total Score - Baby B: 5 - Total Score - Baby C Total Score - Baby C: 5 - Level of Risk - Baby A Level of Risk - Baby A: Low (0-5) - Level of Risk - Baby B Level of Risk - Baby B: Low (0-5) - Level of Risk - Baby C Level of Risk - Baby C: Low (0-5) Physician Notification (Pre) - Physician Notified Physician Notified Date: 08/05/19 Physician Notified Time: 20:10 - Notification Comment Comment: RN notified Dr. Cortez that patient had made cervical change during the one hour. observation. Her cervix was at 5cm initially and progressed to 6. Patient comfortable,. denies pain. Patient is GBS positive. Patient will be admitted, antibiotics started. Dr. Cortez will be in shortly to see the patient. Patient updated on plan of care and will be. moved to [address]. Disposition - Disposition OB Disposition: Admit Transferred to:: [address] I agree with the RN Medical Screening Exam: Yes Risk & Benefit of care provided described in d/c instruction: Yes Diagnosis: LABOR THIRD TRI W DELIVERY THIRD TRI, UNSP
== END 2019-08-08 15:25 | disposition home or self-care (01) | DRG 807 ==
LOC: FBPOP 18:56 → 4FBP 20:14
PROVIDERS: ADMIT Obstetrics & Gynecology; ATTEND Obstetrics & Gynecology
PROC: 10D17Z9 Manual Extraction of Products of Conception, Retained, Via Natural or Artificial Opening (ICD-10-PCS; principal; 2019-08-06)
PROC: 10E0XZZ Delivery of Products of Conception, External Approach (ICD-10-PCS; principal; 2019-08-06)
PROC: 3E0134Z Introduction of Serum, Toxoid and Vaccine into Subcutaneous Tissue, Percutaneous Approach (ICD-10-PCS; principal; 2019-08-06)
DX: O60.14X0 Preterm labor third trimester with preterm delivery third trimester, not applicable or unspecified (principal); Z37.0 Single live birth; B95.1 Streptococcus, group B, as the cause of diseases classified elsewhere; O73.0 Retained placenta without hemorrhage; Z23 Encounter for immunization; Z3A.36 36 weeks gestation of pregnancy; Z79.899 Other long term (current) drug therapy
CPT/HCPCS: 59025; 85025; 86850; 86900; 86901; 88307; 99213

== ENCOUNTER → 2020-03-22 | Outpatient (CLI) | payer OTHER ==
--- NOTE | 2020-03-22 14:20 | US ---
EXAMINATION TYPE: Transabdominal DATE OF EXAM: 03/22/2020 2:06 PM COMPARISON: NONE CLINICAL HISTORY: Z36 confirm dates. EXAM PERFORMED: Transabdominal (TA) EXAM MEASUREMENTS: GESTATIONAL AGE / DATING Physician Established: Not established yet Dates by LMP: Unknown Dates by First Scan: This is 1st scan Dates by Current Scan for: (8 weeks/2 days) EDC: 10/30/2020 MATERNAL ANATOMY Uterus: 8.6 x 7.7 x 9.0cm Right Ovary: 2.2 x 1.5 x 2.1cm Left Ovary: 2.2 x 1.2 x 1.9cm Post CDS / Adnexa: wnl Presence of free fluid: no Presence of corpus luteal cyst: right ovary: 1.3 x 1.0 x 1.0cm Presence of subchorionic bleed: no GESTATION / SURVEY CRL: 1.8cm (8 weeks/2 days) Yolk Sac (normal less than 6mm): 3.5mm Heart Rate: 161 bpm Rhythm: Normal IUP: Viable IUP Date of LMP: Unknown Beta HcG (if available): Not available at time of exam. IMPRESSION: Single intrauterine gestation estimated at 8 weeks 2 days gestation based on the crown-rump length. C ardiac activity measures 161 bpm. 2. Right ovarian cyst.
[2020-03-22 14:50] LABS: HCT 41.2 % (34.0-46.0); MCH 29.5 pg (25.0-35.0); MCV 86.7 fL (80.0-100.0); Mean Platelet Volume 7.8; Platelet Count 205 k/uL (150-450); RBC 4.75 m/uL (3.80-5.40); RDW 14.4 % (11.5-15.5); WBC 8.7 k/uL (3.8-10.6)
[2020-03-22 14:57] LABS: African American GFR (CKD) >90 (>60 ml/min/1.73 sqM); Glucose 88 mg/dL (74-99); Non-African American GFR(CKD) >90 (>60 ml/min/1.73 sqM)
[2020-03-23 00:51] LABS: Hepatitis B Surface Antigen Non-Reactive (Non-Reactive)
== END | disposition home or self-care (01) ==
LOC: RADUSWWP 13:46
PROVIDERS: ATTEND Obstetrics & Gynecology
DX: O34.81 Maternal care for other abnormalities of pelvic organs, first trimester (principal); Z3A.08 8 weeks gestation of pregnancy
CPT/HCPCS: 76801; 82565; 82947; 85027; 86762; 86780; 86850; 86900; 86901; 87340

== ENCOUNTER 2020-07-15 04:30 | Outpatient (CLI) | payer OTHER ==
[2020-07-15 06:44] VITALS: BP 139/63; PULSE 84; RESP 16; TEMP 98.4
--- NOTE | 2020-07-19 11:31 | P.MSEPDOC ---
Presenting Problems - Arrival Data Date of Arrival on Unit: 07/15/20 Time of Arrival on Unit: 04:30 Mode of Transport: Ambulatory - Complaint OB-Reason for Admission/Chief Complaint: Pain Comment: pt. present to triage due to cramping pain rating 5/10 to lower pelvic pain that started yesturday around 1700 and has been intermitted throughout. Medical History - Information : 4 Para: 2 Term: 2 : 0 Abortions: Spontaneous or Elective: 2 Number of Living Children: 2 - Gestational Age Gestational Age by SANTA (wks/days): 24 Weeks and 5 Days Review of Systems - Review of Systems Constitutional: No problems Breast: No problems ENT: No problems Cardiovascular: No problems Respiratory: No problems Gastrointestinal: No problems Genitourinary: No problems Musculoskeletal: No problems Neurological: No problems Skin: No problems Vital Signs - Temperature Temperature: 98.4 F Temperature Source: Temporal Artery Scan - Pulse Pulse Oximetery Pulse Rate: 84 Pulse Assessment Method: Auscultation - Respirations Respiratory Rate: 16 Oxygen Delivery Method: Room Air - Blood Pressure Right Arm Blood Pressure: 139/63 Blood Pressure Mean: 88 Blood Pressure Source: Automatic Cuff Medical Screen Scoring (Pre) - Cervical Exam Dilation: 1-3 cm = 1 Effacement: Exam Deferred Membranes: Intact - Uterine Contractions Frequency: N/A Duration: N/A Intensity: N/A - Maternal Vital Signs Maternal Temperature: N/A Maternal Blood Pressure: N/A Signs of Preeclampsia: N/A Maternal Respirations: N/A - Maternal Trauma Maternal Trauma: N/A - Assessment - Baby A Baseline FHR: 130 Heart Rate - NICHD Category: Category I (Normal) = 0 NST: Reactive Position: N/A Station: N/A - Total Score - Baby A Total Score - Baby A: 1 - Total Score - Baby B Total Score - Baby B: 1 - Total Score - Baby C Total Score - Baby C: 1 - Level of Risk - Baby A Level of Risk - Baby A: Low (0-5) - Level of Risk - Baby B Level of Risk - Baby B: Low (0-5) - Level of Risk - Baby C Level of Risk - Baby C: Low (0-5) Physician Notification (Pre) - Physician Notified Physician Notified Date: 07/15/20 Physician Notified Time: 06:22 New Order Received: Yes - Notification Comment Comment: orders to collect FFN and check cervix, FFN sent due to cervix 1cm, and thick, FFN results came back negative, orders to discharge patient home Disposition - Disposition OB Disposition: Discharge to home Discharge Date: 07/15/20 Discharge Time: 06:30 I agree with the RN Medical Screening Exam: Yes Case reviewed; plan agreed upon as documented in EMR&OBIX.: Yes Diagnosis: LOW BACK PAIN
== END 2020-07-15 06:30 | disposition home or self-care (01) ==
LOC: FBPOP 04:30
PROVIDERS: ATTEND Obstetrics & Gynecology
DX: O99.891 Other specified diseases and conditions complicating pregnancy (principal); M54.5 Low back pain; Z3A.24 24 weeks gestation of pregnancy
CPT/HCPCS: 82731; G0463; 99213

== ENCOUNTER 2020-09-17 03:32 | Outpatient (CLI) | payer OTHER ==
[2020-09-17] MEDS: LACTATED RINGERS 1,000 ML IV SCH ×2 (04:09→04:43)
[2020-09-17 04:13] LABS: Basophils % (A) 0 %; Eosinophils # (A) 0.1 k/uL (0-0.7); Eosinophils % (A) 1 %; HCT 34.7 % (34.0-46.0); HGB 11.8 gm/dL (11.4-16.0); Hypochromasia Slight; Lymphocytes # (A) 1.6 k/uL (1.0-4.8); Lymphocytes % (A) 20 %; MCV 85.2 fL (80.0-100.0); Mean Platelet Volume 9.5; Monocytes # (A) 0.5 k/uL (0-1.0); Monocytes % (A) 6 %; Neutrophils # (A) 5.7 k/uL (1.3-7.7); Neutrophils % (A) 71 %; Platelet Count 157 k/uL (150-450); Poikilocytosis Slight; RBC 4.07 m/uL (3.80-5.40); RDW 15.2 % (11.5-15.5); WBC 8.1 k/uL (3.8-10.6)
[2020-09-17] MEDS ORDERED: BETAMET ACET-BETAMETH SOD PHOS 6 MG/ML MDV IM SCH (04:30)
[2020-09-17] MEDS ORDERED: AMPICILLIN 2,000 MG in SODIUM CHLORIDE 0.9% 100 ML IVPB STA (04:44)
--- NOTE | 2020-09-17 04:53 | P.HPOB ---
History of Present Illness H&P Date: 09/17/20 Chief Complaint: Contractions This patient is a pleasant 25-year-old 4 para 2 female estimated date of confinement 10/30/2020 estimated gestational age 33-6/7 weeks who presents to labor and delivery with complaints of contractions after having intercourse earlier today. is complicated by history of a short cervix and delivery at her first . Patient was co-managed with maternal medicine and they did recommend progesterone for her however she declined. She's had cervical lengths done most recently at 28 weeks was 25-27 mm. Recent exam the office was on September 05 she was 1 cm dilated. Patient was supposed to be on pelvic rest of her did have intercourse this morning began having contractions. Cervix here in labor and delivery is 5 cm dilated 80% effaced. CBC is normal. Patient is having contractions every 2-7 minutes that are mild to moderate. Patient does have a history of a positive group B strep with her second . Review of Systems Genitourinary: Reports Menstruation: Reports amenorrhea Past Medical History Past Medical History: No Reported History Additional Past Medical History / Comment(s): "fast heart beat" - no current medications. Patient's had 2 vaginal deliveries. First is complicated by a short cervix and delivered at 36-2/7 weeks 6 lbs. 7 oz. Second we did get her to 38 weeks and had a 7 lbs. 15 oz. baby girl. History of Any Multi-Drug Resistant Organisms: None Reported Past Surgical History: No Surgical Hx Reported Additional Past Surgical History / Comment(s): D&C. Past Anesthesia/Blood Transfusion Reactions: No Reported Reaction Additional Past Anesthesia/Blood Transfusion Reaction / Comment(s): never had anesthesia Past Psychological History: No Psychological Hx Reported Smoking Status: Never smoker Past Alcohol Use History: None Reported Past Drug Use History: None Reported - Past Family History Mother Family Medical History: No Reported History Medications and Allergies Home Medications Medication Instructions Recorded Confirmed Type Pnv No.95/Ferrous Fum/Folic AC 1 tab PO DAILY 08/05/19 09/17/20 History [ Multivitamin Tablet] Allergies Allergy/AdvReac Type Severity Reaction Status Date / Time No Known Allergies Allergy Verified 09/17/20 03:35 Exam Intake and Output 09/16/20 09/16/20 09/17/20 14:59 22:59 06:59 Other: Weight 81.647 kg - OBG Physical Exam Abdomen: bowel sounds normal, no diffuse tenderness, no bruit present, no guarding noted, no hepatomegaly, no splenomegaly, no mass Vulva: both: normal Vagina: normal moisture, no discharge Cervix: no lesion (Cervix is 580% -1 station. Vertex), no discharge Uterus: enlarged Results blood work shows she is O positive, rubella immune, RPR nonreactive, hepatitis B negative, ultrasounds have shown normal anatomy including a normal cardiac echo. Patient's Glucola was 89. Patient has a history of positive group B strep with her second . Bedside ultrasound confirms vertex presentation. Result Diagrams: 09/17/20 04:00 Assessment and Plan Assessment: This is a pleasant 25-year-old 4 para 2 female 33-6/7 weeks gestation admitted to labor and delivery with complaints of contractions and a history of short cervix. Patient's cervix is 5 cm and due to her prematurity I recommended that she be transferred to a tertiary facility for care. Due to history of positive group B strep was second and going to give her a dose of antibiotics. I did discuss with the physicians at [facility] and they've accepted her in transfer. (1) 34 weeks gestation of Current Visit: Yes Status: Acute Code(s): Z3A.34 - 34 WEEKS GESTATION OF SNOMED Code(s): 79743340 (2) Group B Streptococcus carrier, +RV culture, currently Current Visit: No Status: Acute Code(s): O99.820 - STREPTOCOCCUS B CARRIER STATE COMPLICATING SNOMED Code(s): 1479616354478 (3) labor third trimester with delivery third trimester, other fetus Current Visit: No Status: Acute Code(s): O60.14X9 - LABOR THIRD TRI W DELIVERY THIRD TRI, OTH SNOMED Code(s): 58075682935495001
[2020-09-17 06:02] VITALS: BP 119/65; PULSE 107; RESP 16; TEMP 97.3
--- NOTE | 2020-09-17 07:43 | P.MSEPDOC ---
Presenting Problems - Arrival Data Date of Arrival on Unit: 09/17/20 Time of Arrival on Unit: 03:32 Mode of Transport: Ambulatory - Complaint OB-Reason for Admission/Chief Complaint: Possible Onset of Labor Comment: pt. states contractions every 3-5 min for 2 hours, started after intercourse at 0000 Medical History - Information : 4 Para: 2 Term: 1 : 1 Abortions: Spontaneous or Elective: 1 Number of Living Children: 2 - Gestational Age Gestational Age by SANTA (wks/days): 33 Weeks and 6 Days Review of Systems - Review of Systems Constitutional: No problems Breast: No problems ENT: No problems Cardiovascular: No problems Respiratory: No problems Gastrointestinal: No problems Genitourinary: No problems Musculoskeletal: No problems Neurological: No problems Skin: No problems Vital Signs - Temperature Temperature: 97.3 F Temperature Source: Temporal Artery Scan - Pulse Pulse Oximetery Pulse Rate: 107 Pulse Assessment Method: Automatic Cuff - Respirations Respiratory Rate: 16 Oxygen Delivery Method: Room Air - Blood Pressure Right Arm Blood Pressure: 119/65 Blood Pressure Mean: 83 Blood Pressure Source: Automatic Cuff Medical Screen Scoring - Cervical Exam Dilation (cm): 5 Effacement (%): 50 Station: -1 Membranes: Intact - Uterine Contractions Frequency From (mins): 3 Frequency To (mins): 5 Duration From (seconds): 40 Duration To (seconds): 80 Intensity: Mild Resting: Soft to palpation - Assessment - Baby A Baseline FHR: 125 Heart Rate - NICHD Category: Category I (Normal) NST: Reactive Physician Notification - Physician Notified Physician Notified Date: 09/17/20 Physician Notified Time: 03:35 Physician: Gabino Moore New Order Received: Yes - Notification Comment Comment: transfered patient to [facility], first dose of celestone given, 2gm Amp given for HX of GBS positive and 2 bags of LR given, patient transported by EMS. Maternal Triage Index - Maternal Triage Index Presenting for scheduled procedure w/no complaint: No - Stat/Priority 1 Stat Priority 1: Yes Provider Notified: Gabino Moore Provider Notified Time: 03:35 Criteria Met for Priority 1: Dr. Moore coming in to transfer patient, orders to start IV fluids and send CBC Disposition - Disposition OB Disposition: Transfer to other dept./facility Discharge Date: 09/17/20 Discharge Time: 05:45 I agree with the RN Medical Screening Exam: Yes Case reviewed; plan agreed upon as documented in EMR&OBIX.: Yes Diagnosis: LABOR WITHOUT DELIVERY, THIRD TRIMESTER (Patient presents to labor and delivery with complaints of contractions after intercourse. Please see dictated history and physical and transfer summary. Patient is given Celestone and transfer to a tertiary facility secondary to prematurity.)
== END 2020-09-17 05:45 ==
LOC: FBPOP 03:32
PROVIDERS: ATTEND Obstetrics & Gynecology
DX: O60.1 Preterm labor with preterm delivery (principal); Z3A.33 33 weeks gestation of pregnancy
CPT/HCPCS: 59025; 96361; 96365; 96372; 85025; G0463; J0290; J0702; 99214

== ENCOUNTER 2020-09-26 21:45 | Outpatient (CLI) | payer OTHER ==
[2020-09-26 23:30] VITALS: BP 136/77; PULSE 108; RESP 16; TEMP 98.2
--- NOTE | 2020-10-02 07:34 | P.MSEPDOC ---
Presenting Problems - Arrival Data Date of Arrival on Unit: 09/26/20 Time of Arrival on Unit: 21:45 Mode of Transport: Ambulatory - Complaint OB-Reason for Admission/Chief Complaint: Possible Onset of Labor Comment: pt has been ebonie since this evening Medical History - Information : 4 Para: 2 Term: 2 : 0 Abortions: Spontaneous or Elective: 1 Number of Living Children: 2 - Gestational Age Gestational Age by SANTA (wks/days): 35 Weeks and 1 Days - History Comment: pt was shipped at 34 weeks to [facility] for contractions and being 5cm Review of Systems - Review of Systems Constitutional: No problems Breast: No problems ENT: No problems Cardiovascular: No problems Respiratory: No problems Gastrointestinal: No problems Genitourinary: No problems Musculoskeletal: No problems Neurological: No problems Skin: No problems Vital Signs - Temperature Temperature: 98.2 F Temperature Source: Oral - Pulse Right Sitting Pulse Rate: 108 Pulse Assessment Method: Automatic Cuff - Respirations Respiratory Rate: 16 Oxygen Delivery Method: Room Air O2 Sat by Pulse Oximetry: 98 - Blood Pressure Right Arm Sitting Blood Pressure: 136/77 Blood Pressure Mean: 96 Blood Pressure Source: Automatic Cuff Medical Screen Scoring - Cervical Exam Dilation (cm): 5 Effacement (%): 80 Station: 0 Membranes: Intact - Assessment - Baby A Baseline FHR: 125 Heart Rate - NICHD Category: Category I (Normal) NST: Reactive Physician Notification - Physician Notified Physician Notified Date: 09/26/20 Physician Notified Time: 23:03 Physician: Tom Escoto Order Received: Yes (D/C home) Maternal Triage Index - Maternal Triage Index Presenting for scheduled procedure w/no complaint: No - Stat/Priority 1 Stat Priority 1: No - Urgent/Priority 2 Urgent Priority 2: No - Prompt/Priority 3 Prompt Priority 3: No Criteria Met for Priority 3: pt only had a few contractions while here for and hour, pt had been ebonie more often earlier in the day. pt fits this only due to being 35 1/7 - Non-Urgent/Priority 4 Non-Urgent Priority 4: No - Scheduled/Requesting Priority 5 Scheduled/Requesting Priority 5: No Disposition - Disposition OB Disposition: Discharge to home, Written follow up instructions reviewed Discharge Date: 09/26/20 Discharge Time: 23:10 I agree with the RN Medical Screening Exam: Yes Case reviewed; plan agreed upon as documented in EMR&OBIX.: Yes Diagnosis: FALSE LABOR BEFORE 37 COMPLETED WEEKS OF GEST, THIRD TRI
== END 2020-09-26 23:10 | disposition home or self-care (01) ==
LOC: FBPOP 21:45
PROVIDERS: ATTEND Obstetrics & Gynecology
DX: O47.03 False labor before 37 completed weeks of gestation, third trimester (principal); Z3A.35 35 weeks gestation of pregnancy
CPT/HCPCS: 59025; G0463; 99213

== ENCOUNTER 2020-10-11 02:46 | Inpatient (IN) | payer OTHER ==
[2020-10-11] MEDS ORDERED: OXYTOCIN 10 UNIT/ML 1 ML VIAL IM PRN (03:13)
[2020-10-11] MEDS ORDERED: AMPICILLIN 2,000 MG in SODIUM CHLORIDE 0.9% 100 ML IVPB STA (03:13)
[2020-10-11] MEDS ORDERED: TERBUTALINE 1 MG/ML VIAL SQ PRN (03:13)
[2020-10-11] MEDS ORDERED: LIDOCAINE 0.5% (PF) 5 MG/ML (50 ML SDV) SQ PRN (03:13)
[2020-10-11] MEDS ORDERED: METHYLERGONOVINE 0.2 MG/ML 1 ML AMP IM PRN (03:13)
[2020-10-11] MEDS ORDERED: CARBOPROST TROMETHAMINE 250 MCG/ML 1 ML AMP IM PRN (03:13)
[2020-10-11] MEDS ORDERED: LACTATED RINGERS 1,000 ML IV SCH (03:15)
[2020-10-11] MEDS ORDERED: OXYTOCIN 30 UNITS/500 ML NS 30 UNIT in SALINE 1 500ML.BAG IV SCH ×2 (03:15→07:00)
[2020-10-11 03:40] LABS: Anisocytosis Slight; Basophils % (A) 0 %; Eosinophils # (A) 0.1 k/uL (0-0.7); Eosinophils % (A) 1 %; HCT 34.1 % (34.0-46.0); HGB 11.2 gm/dL (11.4-16.0); Hypochromasia Moderate; Lymphocytes # (A) 1.7 k/uL (1.0-4.8); Lymphocytes % (A) 25 %; MCH 27.6 pg (25.0-35.0); MCHC 32.9 g/dL (31.0-37.0); Mean Platelet Volume 9.1; Monocytes # (A) 0.4 k/uL (0-1.0); Monocytes % (A) 6 %; Neutrophils # (A) 4.4 k/uL (1.3-7.7); Neutrophils % (A) 66 %; Platelet Count 139 k/uL (150-450); Poikilocytosis Slight; RBC 4.05 m/uL (3.80-5.40); RDW 16.4 % (11.5-15.5); WBC 6.6 k/uL (3.8-10.6)
--- NOTE | 2020-10-11 06:47 | P.HPOB ---
History of Present Illness H&P Date: 10/11/20 Chief Complaint: Contractions This patient is a pleasant 25-year-old 4 para 2 female estimated gestational age 37 and one sevenths weeks who presents to labor and delivery last evening with complaints of contractions. Patient was admitted by Dr. Angeles and thought to be in active labor. Patient is given antibiotic prophylaxis secondary to a history of positive strep in a previous . care has been complicated by labor and dilation. Patient was transferred to maternal- medicine several weeks ago secondary to prematurity and given [place] at that time. Patient and continue to watch closely in the office is been 5 cm dilated and now is dilated more and felt to be in active labor. Review of Systems Genitourinary: Reports Menstruation: Reports amenorrhea Past Medical History Past Medical History: No Reported History Additional Past Medical History / Comment(s): "fast heart beat" - no current medications. Patient's had 2 vaginal deliveries. First is complicated by a short cervix and delivered at 36-2/7 weeks 6 lbs. 7 oz. Second we did get her to 38 weeks and had a 7 lbs. 15 oz. baby girl. History of Any Multi-Drug Resistant Organisms: None Reported Past Surgical History: No Surgical Hx Reported Additional Past Surgical History / Comment(s): D&C. Past Anesthesia/Blood Transfusion Reactions: No Reported Reaction Additional Past Anesthesia/Blood Transfusion Reaction / Comment(s): never had anesthesia Past Psychological History: No Psychological Hx Reported Smoking Status: Never smoker Past Alcohol Use History: None Reported Past Drug Use History: None Reported - Past Family History Mother Family Medical History: No Reported History Additional Family Medical History / Comment(s): tachycardia Medications and Allergies Home Medications Medication Instructions Recorded Confirmed Type Pnv No.95/Ferrous Fum/Folic AC 1 tab PO DAILY 08/05/19 10/11/20 History [ Multivitamin Tablet] Allergies Allergy/AdvReac Type Severity Reaction Status Date / Time No Known Allergies Allergy Verified 10/11/20 02:51 Exam Vital Signs Temp Pulse Resp BP Pulse Ox 10/11/20 03:49 97.5 F L 116 H 18 133/84 98 10/11/20 03:13 97.5 F L 116 H 18 133/84 98 Intake and Output 10/10/20 10/10/20 10/11/20 14:59 22:59 06:59 Other: # Voids 0 Weight 81.919 kg - OBG Physical Exam Abdomen: bowel sounds normal, no diffuse tenderness, no bruit present, no guarding noted, no hepatomegaly, no splenomegaly, no mass Vulva: both: normal Vagina: normal moisture, no discharge Cervix: no lesion (Cervix on admission was 5-6 cm dilated and is now 9 cm.), no discharge Uterus: enlarged (Fundal height consistent with dates) Results blood work shows she is O positive, rubella immune, RPR is nonreactive, hepatitis B is negative, ultrasounds have been normal including normal cardiac echo. Result Diagrams: 10/11/20 03:16 Abnormal Lab Results - Last 24 Hours (Table) 10/11/20 Range/Units 03:16 Hgb 11.2 L (11.4-16.0) gm/dL RDW 16.4 H (11.5-15.5) % Plt Count 139 L (150-450) k/uL Assessment and Plan Assessment: This is a pleasant 25-year-old 4 para 2 female 37 weeks gestation active labor. History of positive group B strep previous therefore we will treat antibiotics. Anticipate vaginal delivery (1) 37 weeks gestation of Current Visit: Yes Status: Acute Code(s): Z3A.37 - 37 WEEKS GESTATION OF SNOMED Code(s): 04311556 (2) History of group B Streptococcus (GBS) infection Current Visit: Yes Status: Acute Code(s): Z86.19 - PERSONAL HISTORY OF OTHER INFECTIOUS AND PARASITIC DISEASES SNOMED Code(s): 810746560 (3) Normal labor Current Visit: No Status: Acute Code(s): O80 - ENCOUNTER FOR FULL-TERM UNCOMPLICATED DELIVERY; Z37.9 - OUTCOME OF DELIVERY, UNSPECIFIED SNOMED Code(s): 26845614
--- NOTE | 2020-10-11 06:48 | P.PROBDLV ---
Vaginal Delivery Note - . Vaginal Delivery Note: Normal spontaneous vaginal delivery viable female infant Apgars 9 and 9 delivery time is 0632 hrs. Please see dictated H&P for intimate details of this patient's admission. Brief summary this is a pleasant 25-year-old 4 para 2 female 37 weeks gestation admitted last evening active labor. Patient quickly progresses gets to complete. Patient pushes the head to the perineum the posterior perineum is supported. Controlled delivery of the 's head over the intact perineum. Position is straight occiput anterior presentation. Mouth and nares are bulb suctioned at this time. There is a nuchal cord which is very loose. Patient continues to push and easily delivers the anterior and posterior shoulder and rest this 's body. Some vigorous viable female Apgars are 9 and 9 delivery time was 0632 hours. After delivery of the infant the umbilical cords immediately cut and clamped due to history of jaundice with previous babies. is in late on the mother's abdomen. Placenta spontaneously delivered intact. Inspection of perineum shows no lacerations there is no repair. Estimated blood loss is about 100 mL.
[2020-10-11] MEDS ORDERED: ZOLPIDEM 5 MG TAB PO PRN (06:51)
[2020-10-11] MEDS ORDERED: bisacodyL 10 MG SUPP RECTAL PRN (06:51)
[2020-10-11] MEDS ORDERED: HYDROCORTISONE 2.5% RECTAL CREAM 30 GM TUBE RECTAL PRN (06:51)
[2020-10-11] MEDS ORDERED: diphenhydrAMINE 25 MG CAP PO PRN (06:51)
[2020-10-11] MEDS ORDERED: ACETAMINOPHEN TAB 325 MG TAB PO PRN (06:51)
[2020-10-11] MEDS ORDERED: SIMETHICONE 80 MG CHEWABLE PO PRN (06:51)
[2020-10-11] MEDS ORDERED: diphenhydrAMINE 50 MG/ML 1 ML VIAL IVP PRN (06:51)
[2020-10-11] MEDS ORDERED: BENZOCAINE/MENTHOL SPRAY 1 GM/SPRAY AEROSOL TOPICAL PRN (06:51)
[2020-10-11] MEDS ORDERED: LANOLIN CREAM 5 GM TUBE TOPICAL PRN (06:51)
[2020-10-11] MEDS: IBUPROFEN 600 MG TAB PO PRN ×3 (07:13→20:41)
[2020-10-11] MEDS ORDERED: AMPICILLIN 1,000 MG in SODIUM CHLORIDE 0.9% 50 ML IVPB SCH (07:30)
[2020-10-11] MEDS: SENNOSIDES-DOCUSATE SODIUM 1 EACH TAB PO PRN (20:41)
--- NOTE | 2020-10-12 06:01 | P.PNOBGVD ---
Subjective - Subjective Patient reports: Reports appetite normal, Reports voiding normally, Reports pain well controlled, Reports ambulating normally : doing well Objective - Latest Vital Signs Latest vital signs: Vital Signs Temp Pulse Resp BP Pulse Ox 10/12/20 00:28 97.6 F 83 18 126/76 98 10/11/20 15:04 97.9 F 67 16 112/67 98 10/11/20 12:00 98.1 F 80 16 108/64 96 10/11/20 08:45 97.2 F L 73 16 117/72 10/11/20 08:15 75 16 114/70 10/11/20 07:45 72 16 111/71 10/11/20 07:30 78 16 112/68 10/11/20 07:15 83 16 118/57 10/11/20 07:00 98.4 F 83 16 117/57 10/11/20 06:45 98.4 F 86 16 114/70 97 Intake and Output 10/11/20 10/11/20 10/12/20 14:59 22:59 06:59 Intake Total 27.833 Balance 27.833 Intake: Intake, IV Titration 27.833 Amount Oxytocin 30 Units/500 ml 27.833 Ns 30 unit In Saline 1 500ml.bag @ Per Protocol IV .Q0M [facility] Rx#:[id number] Other: # Voids 1 1 1 - Exam Lungs: bilateral: normal Chest: Normal S1, Normal S2 Extremities: Present: normal Abdomen: Present: normal appearance, soft Uterus: Present: normal, firm Assessment and Plan Assessment: day #1. Patient is resting without complaints and wishes to go home. Vital signs are stable she is afebrile. Uterus is firm nontender she's having normal lochia. My impression is this is a normal course. Plan is to continue routine care and discharge home later today. (1) 37 weeks gestation of Current Visit: Yes Status: Acute Code(s): Z3A.37 - 37 WEEKS GESTATION OF SNOMED Code(s): 49633021 (2) History of group B Streptococcus (GBS) infection Current Visit: Yes Status: Acute Code(s): Z86.19 - PERSONAL HISTORY OF OTHER INFECTIOUS AND PARASITIC DISEASES SNOMED Code(s): 911621633 (3) Normal labor Current Visit: No Status: Acute Code(s): O80 - ENCOUNTER FOR FULL-TERM UNCOMPLICATED DELIVERY; Z37.9 - OUTCOME OF DELIVERY, UNSPECIFIED SNOMED Code(s): 81120898
--- NOTE | 2020-10-12 06:04 | P.DS ---
Providers Date of admission: 10/11/20 03:05 Expected date of discharge: 10/12/20 Attending physician: Gabino Moore Primary care physician: Stated None - Discharge Diagnosis(es) (1) 37 weeks gestation of Current Visit: Yes Status: Acute (2) History of group B Streptococcus (GBS) infection Current Visit: Yes Status: Acute (3) Normal labor Current Visit: No Status: Acute Hospital Course: Please see dictated H&P for intimate details of this patient's admission. Brief summary this is a pleasant 25-year-old 4 para 2 female 37 and one sevenths weeks gestation admitted to labor and delivery in active labor. Patient quickly goes on to have a vaginal delivery viable female . Please see dictated delivery note. day #1 patient's felt be stable for discharge home follow up with me in 6 weeks. Procedures: Normal spontaneous vaginal delivery Patient Condition at Discharge: Good Plan - Discharge Summary New Discharge Prescriptions: New Ibuprofen [Motrin] 600 mg PO Q6HR PRN #30 tab PRN Reason: Mild Pain (Scale 1 To 3) No Action Pnv No.95/Ferrous Fum/Folic AC [ Multivitamin Tablet] 1 tab PO DAILY Discharge Medication List Pnv No.95/Ferrous Fum/Folic AC [ Multivitamin Tablet] 1 tab PO DAILY 08/05/19 [History] Ibuprofen [Motrin] 600 mg PO Q6HR PRN #30 tab 10/12/20 [Rx] Follow up Appointment(s)/Referral(s): Gabino Moore MD [STAFF PHYSICIAN] - 11/19/20 3:30 pm Patient Instructions/Handouts: Vaginal Delivery (DC) Activity/Diet/Wound Care/Special Instructions: No intercourse or anything per vagina for 6 weeks. Please call if any fever, chills, excessive vaginal bleeding, and/or abdominal pain. Discharge Disposition: HOME SELF-CARE
--- NOTE | 2020-10-12 06:22 | P.MSEPDOC ---
Presenting Problems - Arrival Data Date of Arrival on Unit: 10/11/20 Time of Arrival on Unit: 04:05 Mode of Transport: Wheelchair - Complaint OB-Reason for Admission/Chief Complaint: Possible Onset of Labor Comment: Cxns Q3-5min for 2 hours Medical History - Information : 4 Para: 2 Term: 1 : 1 Abortions: Spontaneous or Elective: 1 Number of Living Children: 2 - Gestational Age Gestational Age by SANTA (wks/days): 63 Weeks and 4 Days Review of Systems - Review of Systems Constitutional: No problems Breast: No problems ENT: No problems Cardiovascular: No problems Respiratory: No problems Gastrointestinal: No problems Genitourinary: No problems Musculoskeletal: No problems Neurological: No problems Skin: No problems Vital Signs - Temperature Temperature: 97.6 F Temperature Source: Temporal Artery Scan - Pulse Right Pulse Rate: 83 Pulse Assessment Method: Automatic Cuff - Respirations Respiratory Rate: 18 Oxygen Delivery Method: Room Air O2 Sat by Pulse Oximetry: 98 - Blood Pressure Right Arm Blood Pressure: 126/76 Blood Pressure Mean: 92 Blood Pressure Source: Automatic Cuff Medical Screen Scoring - Cervical Exam Dilation (cm): 7 Effacement (%): 80 Station: -2 Membranes: Intact - Uterine Contractions Frequency From (mins): 2 Frequency To (mins): 3 Duration From (seconds): 60 Duration To (seconds): 80 Intensity: Strong Resting: Soft to palpation - Assessment - Baby A Baseline FHR: 135 Heart Rate - NICHD Category: Category I (Normal) NST: Reactive Physician Notification - Physician Notified Physician Notified Date: 10/11/20 Physician Notified Time: 02:59 Physician: Rubi Angeles New Order Received: Yes - Notification Comment Comment: RN reported to Dr. Angeles pt's cervical exam of /-2, pt coping with cxns, do not have GBS status at this time. Pt to be admitted to room for L&D. Maternal Triage Index - Maternal Triage Index Presenting for scheduled procedure w/no complaint: No - Stat/Priority 1 Stat Priority 1: No - Urgent/Priority 2 Urgent Priority 2: No - Prompt/Priority 3 Prompt Priority 3: Yes Criteria Met for Priority 3: active labor Disposition - Disposition OB Disposition: Admit I agree with the RN Medical Screening Exam: Yes Case reviewed; plan agreed upon as documented in EMR&OBIX.: Yes Diagnosis: ENCOUNTER FOR FULL-TERM UNCOMPLICATED DELIVERY
[2020-10-12] MEDS: SENNOSIDES-DOCUSATE SODIUM 1 EACH TAB PO PRN (08:52)
[2020-10-12 08:57] VITALS: BP 122/68; PULSE 73; RESP 14; TEMP 98.2
== END 2020-10-12 15:37 | disposition home or self-care (01) | DRG 807 ==
LOC: FBPOP 02:46 → 4FBP 03:05
PROVIDERS: ADMIT Obstetrics & Gynecology; ATTEND Obstetrics & Gynecology
PROC: 10E0XZZ Delivery of Products of Conception, External Approach (ICD-10-PCS; principal; 2020-10-11)
DX: O60.14X0 Preterm labor third trimester with preterm delivery third trimester, not applicable or unspecified (principal); Z37.0 Single live birth; O69.81X0 Labor and delivery complicated by cord around neck, without compression, not applicable or unspecified; Z3A.37 37 weeks gestation of pregnancy; Z79.899 Other long term (current) drug therapy; Z86.19 Personal history of other infectious and parasitic diseases
CPT/HCPCS: 59025; 85025; 86850; 86900; 86901; 99213

== ENCOUNTER → 2022-05-26 | Outpatient (CLI) | payer OTHER ==
--- NOTE | 2022-05-26 14:19 | US ---
EXAMINATION TYPE: Transabdominal DATE OF EXAM: 05/26/2022 12:41 PM COMPARISON: NONE CLINICAL HISTORY: Z36.89 CONFIRM GESTATIONAL AGE AND VIABILITY. Confirm Dates EXAM PERFORMED: Transabdominal (TA) EXAM MEASUREMENTS: GESTATIONAL AGE / DATING Physician Established: (9 weeks/3 days) EDC: 12/26/2022 Dates by LMP: (9 weeks/3 days) EDC: 12/26/2022 Dates by First Scan: No previous this is first scan Dates by Current Scan for: (9 weeks/2 days) EDC: 12/27/2022 MATERNAL ANATOMY Uterus: 9.9 x 7.0 x 8.7 cm Right Ovary: 3.2 x 2.0 x 2.3 cm Left Ovary: 3.2 x 2.0 x 2.8 cm Post CDS / Adnexa: wnl Presence of free fluid: No Presence of corpus luteal cyst: Left Ovary= 2.3 x 1.5 x 2.1 cm Presence of subchorionic bleed: Possible crescent shaped bleed lower uterine segment= 1.3 x 0.5 x 3.4 cm GESTATION / SURVEY CRL: 2.6 cm (9 weeks/2 days) MSD: wnl Heart Rate: 162 bpm Rhythm: Normal IUP: Viable IUP Date of LMP: 03/21/2022 IMPRESSION: Single, viable IUP/ Possible sub-chorionic bleed lower uterine segment
== END | disposition home or self-care (01) ==
LOC: RADUSWWP 12:25
PROVIDERS: ATTEND Obstetrics & Gynecology
DX: Z36.89 Encounter for other specified antenatal screening (principal)
CPT/HCPCS: 76801

== ENCOUNTER 2022-12-12 17:45 | Outpatient (CLI) | payer OTHER ==
[2022-12-12 19:31] VITALS: BP 133/89; PULSE 106; RESP 16; TEMP 97.5
== END 2022-12-12 19:10 | disposition home or self-care (01) ==
LOC: FBPOP 17:45
PROVIDERS: ATTEND Obstetrics & Gynecology
DX: Z53.9 Procedure and treatment not carried out, unspecified reason (principal)
CPT/HCPCS: 59025; G0463; 99213

== ENCOUNTER 2022-12-24 05:55 | Inpatient (IN) | payer OTHER ==
--- NOTE | 2022-12-23 06:37 | P.HPOB ---
History of Present Illness H&P Date: 12/23/22 Chief Complaint: Induction of labor secondary to velamentous cord This patient is a pleasant 27-year-old 5 para 3 female estimated date of confinement 12/26/2002 estimated gestational age 39-5/7 weeks who presents to labor and delivery for induction of labor secondary to velamentous cord insertion. Patient's history is such that she was sent to [facility] due to a history of a previous baby with a cardiac defect. Patient's cardiac echo was normal hours she was noted to have a velamentous cord insertion. Patient has been monitored with serial growth ultrasounds and nonstress tests. She now presents for delivery. Review of Systems Genitourinary: Reports Menstruation: Reports amenorrhea Past Medical History Past Medical History: No Reported History Additional Past Medical History / Comment(s): Patient's had 3 previous vaginal deliveries. History of Any Multi-Drug Resistant Organisms: None Reported Past Surgical History: No Surgical Hx Reported Additional Past Surgical History / Comment(s): D&C. Past Anesthesia/Blood Transfusion Reactions: No Reported Reaction Additional Past Anesthesia/Blood Transfusion Reaction / Comment(s): never had anesthesia Past Psychological History: No Psychological Hx Reported Smoking Status: Never smoker Past Alcohol Use History: None Reported Past Drug Use History: None Reported - Past Family History Mother Family Medical History: No Reported History Additional Family Medical History / Comment(s): tachycardia Medications and Allergies Home Medications Medication Instructions Recorded Confirmed Type Pnv No.95/Ferrous Fum/Folic AC 1 tab PO DAILY 08/05/19 12/12/22 History [ Multivitamin Tablet] Allergies Allergy/AdvReac Type Severity Reaction Status Date / Time No Known Allergies Allergy Verified 12/12/22 17:55 Exam - OBG Physical Exam Vulva: both: normal Vagina: normal moisture, no discharge Cervix: no lesion, no discharge Uterus: enlarged Results blood work shows she is O positive, rubella nonimmune, RPR is nonreactive, hepatitis B and C were negative, HIV is nonreactive, Glucola was normal, level III ultrasound cardiac echo were normal with the exception of a velamentous cord insertion. Group B strep was positive Assessment and Plan Assessment: This is a pleasant 27-year-old 5 para 3 female 39-5/7 weeks gestation admitted to labor and delivery for induction of labor secondary to velamentous cord insertion. Plan is induction of labor and anticipate vaginal delivery. Patient is a history of positive group B strep and therefore will be given IV antibiotics during labor. (1) 39 weeks gestation of Status: Acute Code(s): Z3A.39 - 39 WEEKS GESTATION OF SNOMED Code(s): 08839498 (2) Group B streptococcal carriage complicating Status: Acute Code(s): O99.820 - STREPTOCOCCUS B CARRIER STATE COMPLICATING SNOMED Code(s): 984111076588034 (3) Velamentous insertion of umbilical cord Status: Acute Code(s): O43.129 - VELAMENTOUS INSERTION OF UMBILICAL CORD, UNSP TRIMESTER SNOMED Code(s): 79391377
[2022-12-24] MEDS ORDERED: AMPICILLIN 2,000 MG in SODIUM CHLORIDE 0.9% 100 ML IVPB ONE (06:00)
[2022-12-24] MEDS ORDERED: OXYTOCIN 10 UNIT/ML 1 ML VIAL IM PRN (06:06)
[2022-12-24] MEDS ORDERED: CARBOPROST TROMETHAMINE 250 MCG/ML 1 ML AMP IM PRN (06:06)
[2022-12-24] MEDS ORDERED: METHYLERGONOVINE 0.2 MG/ML 1 ML AMP IM PRN (06:06)
[2022-12-24] MEDS ORDERED: TRANEXAMIC 1,000 MG/100ML-NACL 1,000 MG in EMPTY BAG 1 BAG IV PRN (06:06)
[2022-12-24] MEDS ORDERED: miSOPROStoL 200 MCG TAB PO PRN (06:06)
[2022-12-24] MEDS ORDERED: LACTATED RINGERS 1,000 ML IV SCH (06:06)
[2022-12-24] MEDS ORDERED: OXYTOCIN 30 UNITS/500 ML NS 30 UNIT in SALINE 1 500ML.BAG IV SCH ×2 (06:06→11:36)
[2022-12-24] MEDS ORDERED: LIDOCAINE 0.5% (PF) 5 MG/ML (50 ML SDV) SQ PRN (06:06)
[2022-12-24] MEDS ORDERED: TERBUTALINE 1 MG/ML VIAL SQ PRN (06:06)
[2022-12-24 06:21] LABS: Basophils % (A) 0 %; Eosinophils # (A) 0.1 k/uL (0-0.7); Eosinophils % (A) 1 %; HCT 37.1 % (34.0-46.0); HGB 12.2 gm/dL (11.4-16.0); Hypochromasia Slight; Lymphocytes # (A) 1.9 k/uL (1.0-4.8); Lymphocytes % (A) 25 %; MCH 27.7 pg (25.0-35.0); MCHC 32.7 g/dL (31.0-37.0); MCV 84.7 fL (80.0-100.0); Mean Platelet Volume 9.4; Monocytes # (A) 0.4 k/uL (0-1.0); Monocytes % (A) 6 %; Neutrophils # (A) 5.2 k/uL (1.3-7.7); Neutrophils % (A) 67 %; Platelet Count 172 k/uL (150-450); Poikilocytosis Slight; RBC 4.38 m/uL (3.80-5.40); RDW 15.4 % (11.5-15.5); WBC 7.7 k/uL (3.8-10.6)
[2022-12-24] MEDS ORDERED: PRENATAL VIT-IRON-FOLIC ACID 1 EACH TABLET PO SCH (09:00)
[2022-12-24] MEDS ORDERED: AMPICILLIN 1,000 MG in SODIUM CHLORIDE 0.9% 50 ML IVPB SCH (10:00)
[2022-12-24] MEDS ORDERED: LANOLIN CREAM 5 GM TUBE TOPICAL PRN (11:36)
[2022-12-24] MEDS ORDERED: ACETAMINOPHEN TAB 325 MG TAB PO PRN (11:36)
[2022-12-24] MEDS ORDERED: HYDROCORTISONE 2.5% RECTAL CREAM 30 GM TUBE RECTAL PRN (11:36)
[2022-12-24] MEDS ORDERED: ZOLPIDEM 5 MG TAB PO PRN (11:36)
[2022-12-24] MEDS ORDERED: SIMETHICONE 80 MG CHEWABLE PO PRN (11:36)
[2022-12-24] MEDS ORDERED: bisacodyL 10 MG SUPP RECTAL PRN (11:36)
[2022-12-24] MEDS ORDERED: diphenhydrAMINE 25 MG CAP PO PRN (11:36)
[2022-12-24] MEDS ORDERED: BENZOCAINE/MENTHOL SPRAY 1 GM/SPRAY AEROSOL TOPICAL PRN (11:36)
[2022-12-24] MEDS ORDERED: diphenhydrAMINE 50 MG/ML 1 ML VIAL IVP PRN (11:36)
[2022-12-24] MEDS: IBUPROFEN 600 MG TAB PO PRN ×2 (11:46→23:51)
[2022-12-24] MEDS: SENNOSIDES-DOCUSATE SODIUM 1 EACH TAB PO SCH ×2 (11:54→19:39)
--- NOTE | 2022-12-24 13:41 | P.PROBDLV ---
Vaginal Delivery Note - . Vaginal Delivery Note: Normal vaginal delivery viable female Apgars 8 and 9 delivery time was 1052 hrs. Please see dictated H&P for intimate details of this patient's admission. In brief summary this pleasant 27-year-old 5 para 3 female estimated gestational age 39-5/7 weeks who presents to labor and delivery for induction of labor secondary to velamentous cord insertion. Patient has had a positive group B strep culture. On admission IV is placed and antibiotics as started immediately for prophylaxis. Patient has artificial rupture membranes for light meconium-stained fluid. After approximately 2 hours or so she does have Pitocin started to augment her labor. Patient progresses quickly thereafter and gets to complete. Patient pushes the head to the perineum. Posterior perineum was supported and we have controlled delivery of 's head over the intact perineum. Mouth and nares are bulb suctioned. There is no evidence of a nuchal cord. With gentle downward traction within have deliver the anterior and posterior shoulder and rest this infant's body. This is a vigorous viable female Apgars are 8 and 9 delivery time was 1052 hrs. After delivery of the infant the umbilical cord was immediately clamped and cut due to previous history of jaundice. I then inspected the umbilical cord and appears to be inserted and the membrane a sore velamentous on the placenta. For this reason I allow the patient to deliver the placenta herself by pushing. She delivers a placenta which appears to be intact with velamentous cord insertion. All the membranes appeared to be intact as well. There is minimal bleeding. Estimated blood loss is about 100 mL. There is no lacerations and no repair. Infant and mother are stable in delivery room. There are no complications. All counts are correct 3
[2022-12-25 05:35] LABS: Basophils % (A) 0 %; Eosinophils # (A) 0.1 k/uL (0-0.7); Eosinophils % (A) 1 %; HCT 34.7 % (34.0-46.0); HGB 11.1 gm/dL (11.4-16.0); Hypochromasia Moderate; Lymphocytes # (A) 2.2 k/uL (1.0-4.8); Lymphocytes % (A) 21 %; MCH 27.5 pg (25.0-35.0); Mean Platelet Volume 9.6; Monocytes # (A) 0.6 k/uL (0-1.0); Monocytes % (A) 6 %; Neutrophils # (A) 7.4 k/uL (1.3-7.7); Neutrophils % (A) 71 %; Platelet Count 156 k/uL (150-450); Poikilocytosis Slight; RBC 4.04 m/uL (3.80-5.40); RDW 15.4 % (11.5-15.5); WBC 10.4 k/uL (3.8-10.6)
--- NOTE | 2022-12-25 06:38 | P.PNOBGVD ---
Subjective - Subjective Patient reports: Reports appetite normal, Reports voiding normally, Reports pain well controlled, Reports ambulating normally : doing well Objective - Latest Vital Signs Latest vital signs: Vital Signs Temp Pulse Resp BP Pulse Ox 12/25/22 00:00 98 F 86 18 107/56 94 L 12/24/22 20:00 98.1 F 86 18 128/78 96 12/24/22 16:00 99.1 F 102 H 16 132/66 95 12/24/22 13:05 98.3 F 76 16 137/62 12/24/22 12:35 89 16 127/68 12/24/22 12:05 98.1 F 78 16 117/60 12/24/22 11:50 81 16 127/75 12/24/22 11:35 98.0 F 83 16 114/64 12/24/22 11:20 86 16 107/67 12/24/22 11:05 97.7 F 100 18 120/75 Intake and Output 12/24/22 12/24/22 12/25/22 14:59 22:59 06:59 Intake Total 171.7 Output Total 175 Balance -3.3 Intake: Intake, IV Titration 171.7 Amount Oxytocin 30 Units/500 ml 171.7 Ns 30 unit In Saline 1 500ml.bag @ Per Protocol IV .Q0M [facility] Rx#:[id number] Output: Estimated Blood Loss 100 Output, Quantitative 75 Blood Loss Other: # Voids 0 1 - Exam Lungs: bilateral: normal Chest: Normal S1, Normal S2 Extremities: Present: normal Abdomen: Present: normal appearance, soft Uterus: Present: normal, firm - Labs Labs: Abnormal Lab Results - Last 24 Hours (Table) 12/25/22 Range/Units 04:36 Hgb 11.1 L (11.4-16.0) gm/dL Assessment and Plan Assessment: day #1. Patient is resting without complaints and wishes to go home. Vital signs are stable she's afebrile. Uterus is firm nontender and she is having normal lochia. CBC is normal. Plan today is to continue routine care discharge home later this morning (1) 39 weeks gestation of Current Visit: No Status: Acute Code(s): Z3A.39 - 39 WEEKS GESTATION OF SNOMED Code(s): 79213707 (2) Group B streptococcal carriage complicating Current Visit: No Status: Acute Code(s): O99.820 - STREPTOCOCCUS B CARRIER STATE COMPLICATING SNOMED Code(s): 529572643294753 (3) Velamentous insertion of umbilical cord Current Visit: No Status: Acute Code(s): O43.129 - VELAMENTOUS INSERTION OF UMBILICAL CORD, UNSP TRIMESTER SNOMED Code(s): 49387467
--- NOTE | 2022-12-25 06:42 | P.DS ---
Providers Date of admission: 12/24/22 05:55 Expected date of discharge: 12/25/22 Attending physician: Gabino Moore Primary care physician: Stated None - Discharge Diagnosis(es) (1) 39 weeks gestation of Current Visit: No Status: Acute (2) Group B streptococcal carriage complicating Current Visit: No Status: Acute (3) Velamentous insertion of umbilical cord Current Visit: No Status: Acute Hospital Course: Please see dictated H&P and delivery summary on this patient's admission. Brief summary this pleasant 27-year-old 5 para 3 female 39-5/7 weeks admitted to labor and delivery for induction of labor secondary to velamentous cord insertion. Patient is admitted she is uncomplicated induction of labor quickly goes on to have a vaginal delivery viable female . Please see dictated delivery note. day #1 patient was doing well felt to be stable for discharge home. Patient discharge home follow up with me in 6 weeks. Procedures: Induction of labor and normal vaginal delivery Patient Condition at Discharge: Good Plan - Discharge Summary New Discharge Prescriptions: New Ibuprofen [Motrin] 600 mg PO Q6HR PRN #40 tab PRN Reason: Mild Pain (Scale 1 To 3) No Action Pnv No.95/Ferrous Fum/Folic AC [ Multivitamin Tablet] 1 tab PO DAILY Discharge Medication List Pnv No.95/Ferrous Fum/Folic AC [ Multivitamin Tablet] 1 tab PO DAILY 08/05/19 [History] Ibuprofen [Motrin] 600 mg PO Q6HR PRN #40 tab 12/25/22 [Rx] Follow up Appointment(s)/Referral(s): Gabino Moore MD [STAFF PHYSICIAN] - 02/03/23 2:45 pm (Please see me for a visit on:) Patient Instructions/Handouts: Vaginal Delivery (DC) Activity/Diet/Wound Care/Special Instructions: No intercourse or anything per vagina for 6 weeks. Please call if any fever, chills, excessive vaginal bleeding, and/or abdominal pain Discharge Disposition: HOME SELF-CARE
[2022-12-25] MEDS: IBUPROFEN 600 MG TAB PO PRN (08:00)
[2022-12-25] MEDS: SENNOSIDES-DOCUSATE SODIUM 1 EACH TAB PO SCH (08:01)
[2022-12-25 08:26] VITALS: BP 120/61; PULSE 73; RESP 16; TEMP 98
== END 2022-12-25 11:25 | disposition home or self-care (01) | DRG 807 ==
LOC: 4FBP 05:55
PROVIDERS: ADMIT Obstetrics & Gynecology; ATTEND Obstetrics & Gynecology
PROC: 10E0XZZ Delivery of Products of Conception, External Approach (ICD-10-PCS; principal; 2022-12-24)
PROC: 3E033VJ Introduction of Other Hormone into Peripheral Vein, Percutaneous Approach (ICD-10-PCS; 2022-12-24)
PROC: 10907ZC Drainage of Amniotic Fluid, Therapeutic from Products of Conception, Via Natural or Artificial Opening (ICD-10-PCS; 2022-12-24)
DX: O99.824 Streptococcus B carrier state complicating childbirth (principal); Z37.0 Single live birth; O77.0 Labor and delivery complicated by meconium in amniotic fluid; Z3A.39 39 weeks gestation of pregnancy; O43.123 Velamentous insertion of umbilical cord, third trimester
CPT/HCPCS: 85025; 86850; 86900; 86901